=== PATIENT | female | born 1955 | race Caucasian/White ===

== ENCOUNTER 2019-07-27 11:09 | Emergency (ER) | payer OTHER ==
[2019-07-27] MEDS ORDERED: Sodium Chloride 0.9% 1000 ML 1,000 ML IV STA (11:17)
--- NOTE | 2019-07-27 11:17 | ERPHSYRPT ---
- History of Present Illness Time Seen by Provider: 07/27/19 11:15 Source: patient, family Exam Limitations: no limitations Physician History: 64 y/o white female presents with sudden onset of nausea, weakness, palpitations and mild soa. denies cp, denies cough. never had before. denies abd pain. pt states she has been having urinary symptoms including dysuria and urinary frequency. Timing/Duration: today, hour(s) (sudden onset 2 hours ago.) Severity: moderate Associated Symptoms: nausea, shortness of breath, other (palpitations, urinary frequency and dysuria) Allergies/Adverse Reactions: cephalexin monohydrate [From [employer]] Allergy (Verified 07/27/19 11:22) epinephrine Allergy (Verified 07/27/19 11:22) Home Medications: Folic Acid 1 mg PO DAILY 07/27/19 [History] Leflunomide [Arava] 10 mg PO DAILY 07/27/19 [History] Levocetirizine Dihydrochloride [Xyzal] 5 mg PO DAILY 07/27/19 [History] Hx Influenza Vaccination/Date Given: Yes - Review of Systems Constitutional: No Symptoms Eyes: No Symptoms Ears, Nose, & Throat: No Symptoms Respiratory: Dyspnea (mild) Cardiac: Palpitations Abdominal/Gastrointestinal: Nausea Genitourinary Symptoms: Dysuria, Frequency Musculoskeletal: No Symptoms Skin: No Symptoms Neurological: No Symptoms Psychological: No Symptoms Endocrine: No Symptoms Hematologic/Lymphatic: No Symptoms Immunological/Allergic: No Symptoms All Other Systems: Reviewed and Negative - Past Medical History Pertinent Past Medical History: Yes Neurological History: No Pertinent History Cardiac History: No Pertinent History Respiratory History: No Pertinent History Endocrine Medical History: No Pertinent History Musculoskeletal History: Rheumatoid Arthritis History: No Pertinent History Psycho-Social History: No Pertinent History Female Reproductive Disorders: No Pertinent History Other Medical History: L shoulder surgery - Past Surgical History Past Surgical History: Yes Neuro Surgical History: No Pertinent History Cardiac: No Pertinent History Respiratory: No Pertinent History Gastrointestinal: Cholecystectomy Genitourinary: No Pertinent History Musculoskeletal: No Pertinent History Female Surgical History: Hysterectomy - Social History Smoking Status: Never smoker Exposure to second hand smoke: No Drug Use: none Patient Lives Alone: No - Nursing Vital Signs Nursing Vital Signs: Initial Vital Signs Temperature 98.4 F 07/27/19 11:12 Pulse Rate 93 H 07/27/19 11:12 Respiratory Rate 16 07/27/19 11:12 Blood Pressure 163/99 07/27/19 11:12 O2 Sat by Pulse Oximetry 94 L 07/27/19 11:12 Pain Scale Pain Intensity 0 - Physical Exam General Appearance: mild distress, alert, anxiety Eye Exam: PERRL/EOMI, eyes nml inspection Ears, Nose, Throat Exam: normal ENT inspection, moist mucous membranes Neck Exam: normal inspection, non-tender, supple, full range of motion Respiratory Exam: normal breath sounds, lungs clear, airway intact, No chest tenderness, No respiratory distress Cardiovascular Exam: regular rate/rhythm, normal heart sounds, normal peripheral pulses Gastrointestinal/Abdomen Exam: soft, normal bowel sounds, No tenderness Pelvic Exam: not done Rectal Exam: not done Extremity Exam: normal inspection, normal range of motion, pelvis stable Neurologic Exam: alert, oriented x 3, cooperative, [employer] II-XII nml as tested, normal mood/affect, nml cerebellar function, nml station & gait Skin Exam: normal color, warm, dry Lymphatic Exam: No adenopathy SpO2 Interpretation: borderline oxygenation O2 Delivery: Room Air - Course Nursing assessment & vital signs reviewed: Yes EKG Interpreted by Me: RATE (96), Sinus Rhythm, NORMAL AXIS, NORMAL INTERVALS, NORMAL QRS, Other (no comparison ekg) Ordered Tests: Active Orders 24 hr Category Date Time Status Insulation Supervisor STAT Care 07/27/19 11:18 Active EKG-ER Only STAT Care 07/27/19 11:17 Active IV Insertion STAT Care 07/27/19 11:17 Active Pulse Oximetry (ED) STAT Care 07/27/19 11:17 Active CBC W DIFF Stat Lab 07/27/19 11:25 Completed CMP Stat Lab 07/27/19 11:25 Completed CULTURE,URINE Stat Lab 07/27/19 11:48 Received D-DIMER QUANTITATION Stat Lab 07/27/19 11:25 Completed Lactic Acid Stat Lab 07/27/19 11:45 Completed NT PRO BNP Stat Lab 07/27/19 11:25 Completed PROTIME WITH INR Stat Lab 07/27/19 11:25 Completed TROPONIN Q3H Lab 07/27/19 11:25 Completed TROPONIN Q3H Lab 07/27/19 14:30 Ordered TROPONIN Q3H Lab 07/27/19 17:30 Ordered TROPONIN Q3H Lab 07/27/19 20:30 Ordered TROPONIN Q3H Lab 07/27/19 23:30 Ordered UA W/RFX UR CULTURE Stat Lab 07/27/19 11:48 Completed Medication Summary Generic Name Dose Route Start Last Admin Trade Name Tashia PRN Reason Stop Dose Admin Levofloxacin/Dextrose 750 mg in 150 mls @ 100 mls/hr 07/27/19 12:18 07/27/19 12:28 Levofloxacin 750mg/150ml D5w IV 07/27/19 13:47 100 mls/hr STAT STA 100 mls/hr Administration Discontinued Medications Generic Name Dose Route Start Last Admin Trade Name Tashia PRN Reason Stop Dose Admin Sodium Chloride 1,000 mls @ 999 mls/hr 07/27/19 11:17 07/27/19 11:44 Sodium Chloride 0.9% 1000 Ml IV 07/27/19 12:17 999 mls/hr .Q1H1M STA Administration Sodium Chloride Confirm 07/27/19 11:39 Sodium Chloride 0.9% 1000 Ml Administered 07/27/19 11:40 Dose 1,000 mls @ ud .ROUTE .STK-MED ONE Levofloxacin/Dextrose Confirm 07/27/19 12:27 Levofloxacin 750mg/150ml D5w Administered 07/27/19 12:28 Dose 750 mg in 150 mls @ ud IV .STK-MED ONE Ondansetron HCl 4 mg 07/27/19 11:19 07/27/19 11:44 Zofran 4 Mg/2 Ml Vial IV 07/27/19 11:20 4 mg STAT ONE Administration Ondansetron HCl Confirm 07/27/19 11:39 Zofran 4 Mg/2 Ml Vial Administered 07/27/19 11:40 Dose 4 mg .ROUTE .STK-MED ONE Potassium Chloride 10 meq 07/27/19 11:59 07/27/19 12:05 Klor Con 10 Meq PO 07/27/19 12:00 10 meq STAT ONE Administration Potassium Chloride Confirm 07/27/19 12:04 Klor Con 10 Meq Administered 07/27/19 12:05 Dose 10 meq PO .STK-MED ONE Trimethoprim/Sulfamethoxazole 1 tab 07/27/19 12:19 07/27/19 12:28 Bactrim Ds Tablet PO 07/27/19 12:20 1 tab STAT ONE Administration Trimethoprim/Sulfamethoxazole Confirm 07/27/19 12:27 Bactrim Ds Tablet Administered 07/27/19 12:28 Dose 1 tab PO .STK-MED ONE Lab/Rad Data: Laboratory Result Diagrams 07/27/19 11:25 07/27/19 11:25 Laboratory Results 07/27/19 07/27/19 07/27/19 Range/Units 11:48 11:45 11:25 WBC (4.0-10.5) K/mm3 RBC (4.1-5.4) M/mm3 Hgb (12.0-16.0) gm/dl Hct (35-47) % MCV (78-100) fl MCH (26-32) pg MCHC (32-36) g/dl RDW (11.5-14.0) % Plt Count (150-450) K/mm3 MPV (6-9.5) fl Gran % (36.0-66.0) % Eos # (Auto) (0-0.5) Absolute Lymphs (auto) (1.0-4.6) Absolute Monos (auto) (0.0-1.3) Lymphocytes % (24.0-44.0) % Monocytes % (0.0-12.0) % Eosinophils % (0.00-5.0) % Basophils % (0.0-0.4) % Absolute Granulocytes (1.4-6.9) Basophils # (0-0.4) PT (9.95-12.35) SECONDS INR (0.8-3.0) D-Dimer (215-500) ng/mL Sodium (137-145) mmol/L Potassium (3.5-5.1) mmol/L Chloride (98-107) mmol/L Carbon Dioxide (22-30) mmol/L Anion Gap (5-15) MEQ/L BUN (7-17) mg/dL Creatinine (0.52-1.04) mg/dL Estimated GFR ML/MIN Glucose (74-106) mg/dL Lactic Acid 1.3 (0.4-2.0) Calcium (8.4-10.2) mg/dL Total Bilirubin (0.2-1.3) mg/dL AST (14-36) U/L ALT (0-35) U/L Alkaline Phosphatase (38-126) U/L Troponin I < 0.012 (0.000-0.034) ng/mL NT-Pro-B Natriuret Pep (0-900) pg/mL Serum Total Protein (6.3-8.2) g/dL Albumin (3.5-5.0) g/dL Urine Color ASHLEY (YELLOW) Urine Appearance CLOUDY (CLEAR) Urine pH 5.0 (5-6) Ur Specific [place] 1.020 (1.005-1.025) Urine Protein 100 (Negative) Urine Ketones TRACE (NEGATIVE) Urine Blood MODERATE (0-5) Kevon/ul Urine Nitrite POSITIVE (NEGATIVE) Urine Bilirubin NEGATIVE (NEGATIVE) Urine Urobilinogen 2 (0-1) mg/dL Ur Leukocyte Esterase LARGE (NEGATIVE) Urine WBC (Auto) >100 (0-5) /HPF Urine RBC (Auto) 51-100 (0-2) /HPF U Epithel Cells (Auto) RARE (FEW) /HPF Urine Bacteria (Auto) FEW (NEGATIVE) /HPF Urine Mucus (Auto) SLIGHT (NEGATIVE) /HPF Urine Culture Reflexed YES (NO) Urine Glucose NEGATIVE (NEGATIVE) mg/dL 07/27/19 07/27/19 07/27/19 Range/Units 11:25 11:25 11:25 WBC 8.3 (4.0-10.5) K/mm3 RBC 4.30 (4.1-5.4) M/mm3 Hgb 13.1 (12.0-16.0) gm/dl Hct 39.2 (35-47) % MCV 91.2 (78-100) fl MCH 30.5 (26-32) pg MCHC 33.4 (32-36) g/dl RDW 13.4 (11.5-14.0) % Plt Count 198 (150-450) K/mm3 MPV 10.9 H (6-9.5) fl Gran % 79.4 H (36.0-66.0) % Eos # (Auto) 0.07 (0-0.5) Absolute Lymphs (auto) 0.83 L (1.0-4.6) Absolute Monos (auto) 0.77 (0.0-1.3) Lymphocytes % 10.0 L (24.0-44.0) % Monocytes % 9.2 (0.0-12.0) % Eosinophils % 0.8 (0.00-5.0) % Basophils % 0.6 (0.0-0.4) % Absolute Granulocytes 6.61 (1.4-6.9) Basophils # 0.05 (0-0.4) PT 12.9 H (9.95-12.35) SECONDS INR 1.14 (0.8-3.0) D-Dimer 547 H* (215-500) ng/mL Sodium 143 (137-145) mmol/L Potassium 3.3 L (3.5-5.1) mmol/L Chloride 106 (98-107) mmol/L Carbon Dioxide 25 (22-30) mmol/L Anion Gap 14.0 (5-15) MEQ/L BUN 11 (7-17) mg/dL Creatinine 0.64 (0.52-1.04) mg/dL Estimated GFR > 60.0 ML/MIN Glucose 128 H (74-106) mg/dL Lactic Acid (0.4-2.0) Calcium 9.7 (8.4-10.2) mg/dL Total Bilirubin 0.70 (0.2-1.3) mg/dL AST 50 H (14-36) U/L ALT 61 H (0-35) U/L Alkaline Phosphatase 118 (38-126) U/L Troponin I (0.000-0.034) ng/mL NT-Pro-B Natriuret Pep 62.7 (0-900) pg/mL Serum Total Protein 7.6 (6.3-8.2) g/dL Albumin 4.2 (3.5-5.0) g/dL Urine Color (YELLOW) Urine Appearance (CLEAR) Urine pH (5-6) Ur Specific [place] (1.005-1.025) Urine Protein (Negative) Urine Ketones (NEGATIVE) Urine Blood (0-5) Kevon/ul Urine Nitrite (NEGATIVE) Urine Bilirubin (NEGATIVE) Urine Urobilinogen (0-1) mg/dL Ur Leukocyte Esterase (NEGATIVE) Urine WBC (Auto) (0-5) /HPF Urine RBC (Auto) (0-2) /HPF U Epithel Cells (Auto) (FEW) /HPF Urine Bacteria (Auto) (NEGATIVE) /HPF Urine Mucus (Auto) (NEGATIVE) /HPF Urine Culture Reflexed (NO) Urine Glucose (NEGATIVE) mg/dL - Progress Progress: improved Progress Note: 07/27/19 12:50 i had long d/w pt regarding cta chest. i discussed the purpose and what we would be looking for in that test. i discussed the test with iv contrast, the risks benefits and alternatives to the test. i told her i did not believe she had an acute lung issue such as a pneumonia or pulmonary emboli. however, i could not be certain without the test. she declines the cta of chest. Counseled pt/family regarding: lab results, diagnosis, need for follow-up, rad results - Departure Departure Disposition: Home Clinical Impression: UTI (urinary tract infection) Condition: Stable Critical Care Time: No Additional Instructions: drink plenty of fluids. take medications as prescribed. follow up with primary doctor for further management Prescriptions: Smz/Tmp Ds Tablet [Bactrim Ds Tablet] 1 udtab PO BID #20 tablet
[2019-07-27] MEDS ORDERED: Zofran 4 MG/2 ML VIAL IV ONE (11:19)
[2019-07-27 11:36] LABS: BASOPHIL % 0.6 % (0.0-0.4); Basophil (Absolute #) 0.05 (0-0.4); Eosinophil % 0.8 % (0.00-5.0); Eosinophil (Absolute #) 0.07 (0-0.5); Granulocyte Absolute (ANC) 6.61 (1.4-6.9); Granulocytes % 79.4 % (36.0-66.0); Hematocrit 39.2 % (35-47); Hemoglobin 13.1 gm/dl (12.0-16.0); Lymphocyte (Absolute #) 0.83 (1.0-4.6); Mean Cell Volume 91.2 fl (78-100); Mean Corpuscular Hemoglobin 30.5 pg (26-32); Mean Corpuscular Hgb Concent. 33.4 g/dl (32-36); Mean Platelet Volume 10.9 fl (6-9.5); Monocyte (Absolute #) 0.77 (0.0-1.3); Monocytes % 9.2 % (0.0-12.0); Platelet Count 198 K/mm3 (150-450); Red Cell Distribution Width 13.4 % (11.5-14.0); White Blood Count 8.3 K/mm3 (4.0-10.5)
[2019-07-27] MEDS ORDERED: Zofran 4 MG/2 ML VIAL ONE (11:39)
[2019-07-27] MEDS ORDERED: Sodium Chloride 0.9% 1000 ML 1,000 ML ONE (11:39)
[2019-07-27 11:41] LABS: INR 1.14 (0.8-3.0); PROTIME 12.9 SECONDS (9.95-12.35)
[2019-07-27 11:53] LABS: ALBUMIN 4.2 g/dL (3.5-5.0); ALKALINE PHOSPHATASE 118 U/L (38-126); BLOOD UREA NITROGEN 11 mg/dL (7-17); CHLORIDE 106 mmol/L (98-107); Calcium 9.7 mg/dL (8.4-10.2); Carbon Dioxide 25 mmol/L (22-30); Creatinine 1 0.64 mg/dL (0.52-1.04); Glucose 128 mg/dL (74-106); NT PRO BNP 62.7 pg/mL (0-900); Potassium 3.3 mmol/L (3.5-5.1); SGOT/AST 50 U/L (14-36); SGPT/ALT 61 U/L (0-35); SODIUM 143 mmol/L (137-145); Total Protein 7.6 g/dL (6.3-8.2)
[2019-07-27] MEDS ORDERED: Klor Con 10 MEQ PO ONE ×2 (11:59→12:04)
[2019-07-27 12:03] LABS: Appearance CLOUDY (CLEAR); Bacteria FEW /HPF (NEGATIVE); Bilirubin NEGATIVE (NEGATIVE); Blood MODERATE Ery/ul (0-5); Epithelial Cells RARE /HPF (FEW); Glucose NEGATIVE (NEGATIVE); Ketones TRACE (NEGATIVE); Leukocyte Esterase LARGE (NEGATIVE); Mucus SLIGHT /HPF (NEGATIVE); Nitrite POSITIVE (NEGATIVE); Protein,Urine Dip 100 (Negative); RBC 51-100 /HPF (0-2); Urobilinogen 2 mg/dL (0-1); WBC >100 /HPF (0-5)
[2019-07-27 12:09] VITALS: PULSE 83
[2019-07-27] MEDS ORDERED: LEVOFLOXACIN 750MG/150ML D5W 750 MG/150 ML BAG IV STA (12:18)
[2019-07-27] MEDS ORDERED: BACTRIM DS TABLET PO ONE ×2 (12:19→12:27)
[2019-07-27] MEDS ORDERED: LEVOFLOXACIN 750MG/150ML D5W 750 MG/150 ML BAG IV ONE (12:27)
[2019-07-27 13:05] VITALS: BP 167/94; O2SAT 97
== END 2019-07-27 14:22 | disposition home or self-care (01) ==
LOC: ED 11:09
DX: N39.0 Urinary tract infection, site not specified (principal)
CPT/HCPCS: 36000; 36415; 80053; 81001; 83605; 83880; 84484; 85025; 85379; 85610; 87077; 87086; 87186; 93005; 93041; 94760; 96360; 96365; 96374; 99284; J1956; J2405; A9270-GY

== ENCOUNTER 2021-07-09 11:46 | Emergency (ER) | payer OTHER ==
[2021-07-09 12:42] VITALS: BP 131/68; PULSE 92; O2SAT 98
--- NOTE | 2021-07-09 13:37 | ERPHSYRPT ---
- History of Present Illness Time Seen by Provider: 07/09/21 11:49 Patient Subjective Stated Complaint: UTI complaints Triage Nursing Assessment: Patient ambulated back to ED and transferred self to bed. Patient A+O X3. Patient's skin pink, warm and dry. Patient complains of dysuria, frequency, urgenc, hestitation and hematuria upon urination since Friday. Patient also complains of lower abdominal pain 5/10. Urine noted to be light saw and cloudy. Physician History: 65 years old female with history of UTIs in the past presented in the ER with 2 days history of increased urinary frequency, burning, suprapubic discomfort and today started to have some hematuria. No fever or chills reported. Patient has been using [id number] medication with no significant relief. No abdominal pain in the right or left lower quadrants, nausea or vomiting. Timing/Duration: day(s) (2), intermittent, gradual onset, worse Activites at Onset: rest Quality: burning, fullness Onset Location: suprapubic, urethral Severity of Pain-Max: moderate Severity of Pain-Current: moderate Sexual intercourse history: non-contributory Modifying Factors: Worsens With: urinating Associated Symptoms: dysuria, urinary frequency, No fever, No chills, No vomiting Allergies/Adverse Reactions: cephalexin monohydrate [From [employer]] Allergy (Verified 07/09/21 12:34) epinephrine Allergy (Verified 07/09/21 12:34) Home Medications: Folic Acid 1 mg PO DAILY 07/27/19 [History] Leflunomide [Arava] 10 mg PO DAILY 07/27/19 [History] Levocetirizine Dihydrochloride [Xyzal] 5 mg PO DAILY 07/27/19 [History] Hx Influenza Vaccination/Date Given: Yes Hx Pneumococcal Vaccination/Date Given: No Travel Risk - International Travel Have you traveled outside of the country in past 3 weeks: No - Coronavirus Screening Are you exhibiting any of the following symptoms?: No - Vaccine Status Have you recieved a Covid-19 vaccination: Yes 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[employer] - Vaccination Dates Date of 2cond Vaccination (if applicable): na - Review of Systems Constitutional: No Symptoms Ears, Nose, & Throat: No Symptoms Respiratory: No Symptoms Cardiac: No Symptoms Abdominal/Gastrointestinal: No Symptoms Genitourinary Symptoms: Dysuria, Frequency, Hematuria Musculoskeletal: No Symptoms Neurological: No Symptoms Psychological: No Symptoms Endocrine: No Symptoms Hematologic/Lymphatic: No Symptoms - Past Medical History Pertinent Past Medical History: Yes Neurological History: No Pertinent History Cardiac History: No Pertinent History Respiratory History: No Pertinent History Endocrine Medical History: No Pertinent History Musculoskeletal History: Rheumatoid Arthritis History: No Pertinent History Psycho-Social History: No Pertinent History Female Reproductive Disorders: No Pertinent History Other Medical History: L shoulder surgery - Past Surgical History Past Surgical History: Yes Neuro Surgical History: No Pertinent History Cardiac: No Pertinent History Respiratory: No Pertinent History Gastrointestinal: Cholecystectomy Genitourinary: No Pertinent History Musculoskeletal: No Pertinent History Female Surgical History: Hysterectomy - Social History Smoking Status: Never smoker Exposure to second hand smoke: No Drug Use: none Patient Lives Alone: No - Female History Hx Now: No - Nursing Vital Signs Nursing Vital Signs: Initial Vital Signs Temperature 98.0 F 07/09/21 12:35 Pulse Rate 92 H 07/09/21 12:35 Respiratory Rate 18 07/09/21 12:35 Blood Pressure 131/68 07/09/21 12:35 O2 Sat by Pulse Oximetry 98 07/09/21 12:35 Pain Scale Pain Intensity 5 - Physical Exam General Appearance: no apparent distress, alert Ears, Nose, Throat Exam: normal ENT inspection Neck Exam: normal inspection, full range of motion Respiratory Exam: normal breath sounds, lungs clear Cardiovascular Exam: regular rate/rhythm, normal heart sounds Gastrointestinal/Abdomen Exam: soft, normal bowel sounds, tenderness (Mild suprapubic) Back Exam: normal inspection, normal range of motion Extremity Exam: normal inspection, normal range of motion Neurologic Exam: alert, oriented x 3, cooperative Skin Exam: normal color SpO2 Interpretation: normal SpO2: 98 O2 Delivery: Room Air Ordered Tests: Active Orders 24 hr Category Date Time Status CULTURE,URINE Stat Lab 07/09/21 12:35 Received UA W/RFX UR CULTURE Stat Lab 07/09/21 12:35 Completed Medication Summary Generic Name Dose Route Start Last Admin Trade Name Freq PRN Reason Stop Dose Admin Trimethoprim/Sulfamethoxazole 1 tab 07/09/21 15:09 Bactrim Ds Tablet PO 07/09/21 15:10 STAT STA Lab/Rad Data: Laboratory Results 07/09/21 Range/Units 12:35 Urine Color YELLOW (YELLOW) Urine Appearance CLOUDY (CLEAR) Urine pH 6.0 (5-6) Ur Specific [place] 1.006 (1.005-1.025) Urine Protein 30 (Negative) Urine Ketones NEGATIVE (NEGATIVE) Urine Blood LARGE (0-5) Kevon/ul Urine Nitrite NEGATIVE (NEGATIVE) Urine Bilirubin NEGATIVE (NEGATIVE) Urine Urobilinogen NEGATIVE (0-1) mg/dL Ur Leukocyte Esterase LARGE (NEGATIVE) Urine WBC (Auto) >100 (0-5) /HPF Urine RBC (Auto) 26-50 (0-2) /HPF U Epithel Cells (Auto) NONE (FEW) /HPF Urine Bacteria (Auto) MODERATE (NEGATIVE) /HPF Urine Culture Reflexed YES (NO) Urine Glucose NEGATIVE (NEGATIVE) mg/dL - Progress Progress: unchanged Air Movement: good Progress Note: 07/09/21 15:10 Does have UTI, started on Bactrim. Recommended outpatient follow-up. Discussed signs symptoms of worsening needing return to ER which he seems understanding. Does not have any flank tenderness, fever/chills, do not think needs any further work-up and is stable for discharge. Blood Culture(s) Obtained: No Antibiotics given: Yes Counseled pt/family regarding: lab results, diagnosis, need for follow-up - Departure Departure Disposition: Home Clinical Impression: UTI (urinary tract infection) Qualifiers: Urinary tract infection type: acute cystitis Hematuria presence: with hematuria Qualified Code(s): N30.01 - Acute cystitis with hematuria Condition: Stable Critical Care Time: No Referrals: BRYAN HODGES [Primary Care Provider] - (In 2 days for reevaluation) Instructions: Urinary Tract Infection, Adult (DC) Additional Instructions: Drink plenty of fluids. Take Tylenol as needed. Follow-up with your primary care physician for reevaluation. Return to ER for worsening pain, difficulty urination or if develop fever chills or flank pain etc. Prescriptions: Smz/Tmp Ds Tablet [Bactrim Ds Tablet] 1 udtab PO BID #10 tablet
[2021-07-09 14:09] LABS: Appearance CLOUDY (CLEAR); Bacteria MODERATE /HPF (NEGATIVE); Bilirubin NEGATIVE (NEGATIVE); Blood LARGE Ery/ul (0-5); Glucose NEGATIVE (NEGATIVE); Ketones NEGATIVE (NEGATIVE); Leukocyte Esterase LARGE (NEGATIVE); Nitrite NEGATIVE (NEGATIVE); Protein,Urine Dip 30 (Negative); RBC 26-50 /HPF (0-2); Specific Gravity 1.006 (1.005-1.025); Urobilinogen NEGATIVE mg/dL (0-1); WBC >100 /HPF (0-5)
[2021-07-09] MEDS ORDERED: BACTRIM DS TABLET PO STA (15:09)
[2021-07-09] MEDS ORDERED: BACTRIM DS TABLET PO ONE (15:19)
== END 2021-07-09 15:33 | disposition home or self-care (01) ==
LOC: ED 11:46
DX: N39.0 Urinary tract infection, site not specified (principal); Z79.899 Other long term (current) drug therapy
CPT/HCPCS: 81001; 87086; 99283; A9270-GY

== ENCOUNTER 2021-12-10 16:38 | Inpatient (IN) | payer MEDICARE, OTHER ==
[2021-12-10] MEDS ORDERED: Sodium Chloride 0.9% 1000 ML 1,000 ML IV SCH ×2 (17:00→21:26)
[2021-12-10] MEDS ORDERED: DECADRON 10MG INJ. IV ONE (17:02)
[2021-12-10] MEDS ORDERED: ENOXAPARIN SODIUM SQ ONE ×5 (17:04→19:19)
[2021-12-10] MEDS ORDERED: REMDESIVIR 200 MG in Sodium Chloride 0.9% 250 ML 250 ML IV ONE (17:04)
--- NOTE | 2021-12-10 17:16 | ERPHSYRPT ---
- History of Present Illness Time Seen by Provider: 12/10/21 16:45 Source: patient Exam Limitations: no limitations Patient Subjective Stated Complaint: "I can't breath." Triage Nursing Assessment: Patient reported that she was COVID positive on . She reported worsening shortness of breath and weakness over the past three days. She reported that she felt better yesterday afternoon then had a sudden episode of shortness of breath without chest pain, dizziness, visual disturbances. Pupils 3mm bilateral. Symmetrical chest expansion. heart tones S1/S2 RRR without extra sounds. Lungs vesicular with coarse expiratory wheezes in the bilateral lung bases. Peripheral pulses +3 bilateral. Abdomen obese non- distended, non-tender, and without palpable organomegaly or pulsatile masses. No noted dependent edema. Physician History: Patient is a 66-year-old female presents to our emergency department with complaints of shortness of breath. Patient was diagnosed with Covid on November 27. Since then she has been experiencing malaise and shortness of breath. These have been manageable however today patient developed acute onset shortness of breath. Upon arrival to our ED patient was hypoxic on room air. No chest pain. No nausea or vomiting. No diaphoresis. No diarrhea. No rash. Symptoms are moderate in intensity. Exertion worsens shortness of breath. Patient voices no other complaints or concerns at this time. Timing/Duration: today Severity: moderate Modifying Factors: Improves With: nothing Associated Symptoms: denies symptoms Allergies/Adverse Reactions: cephalexin monohydrate [From Keflex] Allergy (Verified 07/09/21 12:34) epinephrine Adverse Reaction (Verified 12/10/21 16:44) Home Medications: Folic Acid 1 mg PO DAILY 07/27/19 [History] Leflunomide [Arava] 10 mg PO DAILY 07/27/19 [History] Levocetirizine Dihydrochloride [Xyzal] 5 mg PO DAILY 07/27/19 [History] Lisinopril 5 mg [Zestril 5 MG] 5 mg PO DAILY 12/10/21 [History] Hx Influenza Vaccination/Date Given: No Hx Pneumococcal Vaccination/Date Given: No Travel Risk - International Travel Have you traveled outside of the country in past 3 weeks: No - Coronavirus Screening Are you exhibiting any of the following symptoms?: Yes Symptoms: Shortness of Breath Close contact with a COVID-19 positive Pt in past 14-21 Days: No - Vaccine Status Have you recieved a Covid-19 vaccination: Yes Lathe Hand: [employer] - Vaccination Dates Date of 2cond Vaccination (if applicable): 07/2021 - Review of Systems Constitutional: No Symptoms, No Fever, No Chills Eyes: No Symptoms Ears, Nose, & Throat: No Symptoms Respiratory: No Symptoms, No Cough, No Dyspnea Cardiac: No Symptoms, No Chest Pain, No Edema, No Syncope Abdominal/Gastrointestinal: No Symptoms, No Abdominal Pain, No Nausea, No Vomiting, No Diarrhea Genitourinary Symptoms: No Symptoms, No Dysuria Musculoskeletal: No Symptoms, No Back Pain, No Neck Pain Skin: No Symptoms, No Rash Neurological: No Symptoms, No Dizziness, No Focal Weakness, No Sensory Changes Psychological: No Symptoms Endocrine: No Symptoms Hematologic/Lymphatic: No Symptoms Immunological/Allergic: No Symptoms All Other Systems: Reviewed and Negative - Past Medical History Pertinent Past Medical History: Yes Neurological History: No Pertinent History Cardiac History: Hypertension Respiratory History: No Pertinent History Endocrine Medical History: No Pertinent History Musculoskeletal History: Rheumatoid Arthritis History: No Pertinent History Psycho-Social History: No Pertinent History Female Reproductive Disorders: No Pertinent History Other Medical History: L shoulder surgery, Covid + 11/27/2021 - Past Surgical History Past Surgical History: Yes Neuro Surgical History: No Pertinent History Cardiac: No Pertinent History Respiratory: No Pertinent History Gastrointestinal: Cholecystectomy Genitourinary: No Pertinent History Musculoskeletal: No Pertinent History Female Surgical History: Hysterectomy - Social History Smoking Status: Never smoker Exposure to second hand smoke: No Drug Use: none Patient Lives Alone: No - Nursing Vital Signs Nursing Vital Signs: Initial Vital Signs Temperature 99.4 F 12/10/21 16:38 Pulse Rate 82 12/10/21 16:38 Respiratory Rate 34 H 12/10/21 16:38 Blood Pressure 111/74 12/10/21 16:38 O2 Sat by Pulse Oximetry 76 L 12/10/21 16:38 Pain Scale Pain Intensity 0 - Physical Exam General Appearance: no apparent distress, alert Eye Exam: PERRL/EOMI, eyes nml inspection Ears, Nose, Throat Exam: normal ENT inspection, TMs normal, pharynx normal, moist mucous membranes Neck Exam: normal inspection, non-tender, supple, full range of motion Respiratory Exam: normal breath sounds, lungs clear, airway intact, diminished breath sounds, No respiratory distress Cardiovascular Exam: regular rate/rhythm, normal heart sounds, normal peripheral pulses Gastrointestinal/Abdomen Exam: soft, normal bowel sounds, No tenderness, No mass Back Exam: normal inspection, normal range of motion, No CVA tenderness, No vertebral tenderness Extremity Exam: normal inspection, normal range of motion, pelvis stable Neurologic Exam: alert, oriented x 3, cooperative, normal mood/affect, nml cerebellar function, nml station & gait, sensation nml, No motor deficits Skin Exam: normal color, warm, dry, No rash Lymphatic Exam: No adenopathy SpO2 Interpretation: normal SpO2: 76 O2 Delivery: Room Air - Course Nursing assessment & vital signs reviewed: Yes - Radiology Exams Chest X-ray Interpretation: Interpreted by me (Bilateral pulmonary opacities. Normal cardiac silhouette. Intact bony thorax) - CT Exams Chest CT Interpretation: Tele-radiologist Report (No comps. Nonoccluding PEs main left to right pulmonary arteries and right upper right lower and left lower branches. Diffuse COVID-19 pneumonia. Fatty liver.) Ordered Tests: Active Orders 24 hr Category Date Time Status Planning Official STAT Care 12/10/21 17:00 Active EKG-ER Only STAT Care 12/10/21 16:59 Active IV Insertion STAT Care 12/10/21 16:59 Active IV Insertion-2nd Peripheral STAT Care 12/10/21 17:08 Active Oxygen-ED Only Nasal Cannula 6 lpm Care 12/10/21 17:09 Active Pulse Oximetry (ED) STAT Care 12/10/21 16:59 Active CHEST 1 VIEW (PORTABLE) Stat Exams 12/10/21 17:00 Taken CHEST WITH CONTRAST [CT] Stat Exams 12/10/21 17:13 Taken BLOOD CULTURE Stat Lab 12/10/21 16:50 Received CBC W DIFF Stat Lab 12/10/21 16:59 Completed CMP Stat Lab 12/10/21 16:59 Completed UA W/RFX UR CULTURE Stat Lab 12/10/21 17:00 Ordered Transfer Order Routine Transfer 12/10/21 Ordered Medication Summary Generic Name Dose Route Start Last Admin Trade Name Freq PRN Reason Stop Dose Admin Sodium Chloride 1,000 mls @ 100 mls/hr 12/10/21 17:00 12/10/21 17:21 Sodium Chloride 0.9% 1000 Ml IV 01/09/22 16:59 100 mls/hr .Q10H MARGE Administration Discontinued Medications Generic Name Dose Route Start Last Admin Trade Name Tashia PRN Reason Stop Dose Admin Dexamethasone Sodium Phosphate 8 mg 12/10/21 17:02 12/10/21 17:22 Dexamethasone Sod Phosphate 10 Mg/Ml IV 12/10/21 17:03 8 mg STAT ONE Administration Dexamethasone Sodium Phosphate Confirm 12/10/21 17:17 Dexamethasone Sod Phosphate 10 Mg/Ml Administered 12/10/21 17:18 Dose 10 mg .ROUTE .STK-MED ONE Enoxaparin Sodium 40 mg 12/10/21 17:04 12/10/21 17:22 Enoxaparin Sodium 40 Mg/0.4 Ml Syringe SQ 12/10/21 17:05 40 mg STAT ONE Administration Enoxaparin Sodium Confirm 12/10/21 17:17 Enoxaparin Sodium 80 Mg/0.8 Ml Syringe Administered 12/10/21 17:18 Dose 80 mg SQ .STK-MED ONE Remdesivir 200 mg/ Sodium 250 mls @ 125 mls/hr 12/10/21 17:04 12/10/21 18:07 Chloride IV 12/10/21 19:03 125 mls/hr ONCE ONE Administration Potassium Chloride 40 meq 12/10/21 17:56 Potassium Chloride 10 Meq Tablet PO 12/10/21 17:57 STAT ONE Lab/Rad Data: Laboratory Result Diagrams 12/10/21 16:59 12/10/21 16:59 Laboratory Results 12/10/21 12/10/21 Range/Units 16:59 16:59 WBC 6.5 (4.0-10.5) K/mm3 RBC 3.47 L (4.1-5.4) M/mm3 Hgb 10.3 L (12.0-16.0) gm/dl Hct 32.0 L (35-47) % MCV 92.2 (78-100) fl MCH 29.7 (26-32) pg MCHC 32.2 (32-36) g/dl RDW 13.5 (11.5-14.0) % Plt Count 210 (150-450) K/mm3 MPV 11.2 H (7.5-11.0) fl Gran % 78.9 H (36.0-66.0) % Eos # (Auto) 0.01 (0-0.5) Absolute Lymphs (auto) 0.78 L (1.0-4.6) Absolute Monos (auto) 0.56 (0.0-1.3) Lymphocytes % 12.0 L (24.0-44.0) % Monocytes % 8.6 (0.0-12.0) % Eosinophils % 0.2 (0.00-5.0) % Basophils % 0.3 (0.0-0.4) % Absolute Granulocytes 5.12 (1.4-6.9) Basophils # 0.02 (0-0.4) Sodium 136 L (137-145) mmol/L Potassium 2.8 L* (3.5-5.1) mmol/L Chloride 97 L (98-107) mmol/L Carbon Dioxide 30 (22-30) mmol/L Anion Gap 11.9 (5-15) MEQ/L BUN 8 (7-17) mg/dL Creatinine 0.50 L (0.52-1.04) mg/dL Estimated GFR > 60.0 ML/MIN Glucose 100 (74-106) mg/dL Calcium 7.5 L (8.4-10.2) mg/dL Total Bilirubin 0.90 (0.2-1.3) mg/dL AST 56 H (14-36) U/L ALT 27 (0-35) U/L Alkaline Phosphatase 83 (38-126) U/L Serum Total Protein 5.7 L (6.3-8.2) g/dL Albumin 3.1 L (3.5-5.0) g/dL - Progress Progress: improved Progress Note: Patient reassessed. Patient feels much better with the oxygen. CTA chest reveals nonoccluding PEs at the main left right pulmonary, right upper lobe right lower lobe left lower lobe. Diffuse COVID-19 pneumonia. Fatty liver patient received a total of 1 mg/kg Lovenox. Case discussed Dr. Alberts who accepts admission to observation. Plan of care discussed with patient. She agrees to admission [facility] for further evaluation and treatment. Portions of this note were created with voice recognition technology. There may be grammatical, spelling, punctuation or sound alike errors 12/10/21 19:[address].: Other (Case discussed with Dr. Alberts who accepts admission to the Covid unit.) Will see patient in: hospital (observation) Counseled pt/family regarding: lab results, diagnosis, rad results - Departure Departure Disposition: Observation Clinical Impression: COVID-19, Pneumonia due to COVID-19 virus, Hypoxia, Shortness of breath, Hypokalemia, Multiple nonoccluding pulmonary emboli, Fatty liver Condition: Stable Critical Care Time: No Referrals: BRYAN HODGES [Primary Care Provider] - Follow up/PCP as directed
[2021-12-10] MEDS ORDERED: Sodium Chloride 0.9% 1000 ML 1,000 ML ONE (17:17)
[2021-12-10] MEDS ORDERED: DECADRON 10MG INJ. ONE (17:17)
[2021-12-10 17:41] LABS: Absolute Neutrophil Ct (ANC) 5.12 (1.4-6.9); Basophil (Absolute #) 0.02 (0-0.4); Eosinophil % 0.2 % (0.00-5.0); Eosinophil (Absolute #) 0.01 (0-0.5); Hemoglobin 10.3 gm/dl (12.0-16.0); Lymphocyte (Absolute #) 0.78 (1.0-4.6); Mean Cell Volume 92.2 fl (78-100); Mean Corpuscular Hemoglobin 29.7 pg (26-32); Mean Corpuscular Hgb Concent. 32.2 g/dl (32-36); Mean Platelet Volume 11.2 fl (7.5-11.0); Monocyte (Absolute #) 0.56 (0.0-1.3); Monocytes % 8.6 % (0.0-12.0); Neutrophil % 78.9 % (36.0-66.0); Platelet Count 210 K/mm3 (150-450); Red Blood Count 3.47 M/mm3 (4.1-5.4); Red Cell Distribution Width 13.5 % (11.5-14.0); White Blood Count 6.5 K/mm3 (4.0-10.5)
[2021-12-10 17:50] LABS: ALBUMIN 3.1 g/dL (3.5-5.0); ALKALINE PHOSPHATASE 83 U/L (38-126); ANION GAP 11.9 MEQ/L (5-15); BLOOD UREA NITROGEN 8 mg/dL (7-17); CHLORIDE 97 mmol/L (98-107); Calcium 7.5 mg/dL (8.4-10.2); Carbon Dioxide 30 mmol/L (22-30); EST GLOMERULAR FILTRATION RATE > 60.0 ML/MIN; Glucose 100 mg/dL (74-106); SGOT/AST 56 U/L (14-36); SGPT/ALT 27 U/L (0-35); SODIUM 136 mmol/L (137-145); Total Protein 5.7 g/dL (6.3-8.2)
[2021-12-10 17:55] LABS: Potassium 2.8 mmol/L (3.5-5.1)
[2021-12-10] MEDS ORDERED: Klor Con 10 MEQ PO ONE ×2 (17:56→19:19)
[2021-12-10] MEDS ORDERED: Ativan 2 MG/1 ML VIAL IV PRN (21:26)
[2021-12-10] MEDS ORDERED: TYLENOL EXTRA STRENGTH 500 MG PO PRN (21:26)
[2021-12-10] MEDS ORDERED: HYDROCODONE-CHLORPHEN ER SUSP PO PRN (21:26)
[2021-12-10] MEDS ORDERED: Zofran 4 MG/2 ML VIAL IV PRN (21:26)
[2021-12-10] MEDS ORDERED: VENTOLIN COMMON CANISTER IH PRN (21:26)
[2021-12-11] MEDS ORDERED: Sodium Chloride 0.9% 1000 ML 1,000 ML ONE (04:33)
[2021-12-11] MEDS: Sodium Chloride 0.9% 1000 ML 1,000 ML IV SCH ×2 (04:34→18:31)
[2021-12-11 06:04] LABS: Absolute Neutrophil Ct (ANC) 2.16 (1.4-6.9); Basophil (Absolute #) 0.01 (0-0.4); Eosinophil (Absolute #) 0 (0-0.5); Hematocrit 30.2 % (35-47); Hemoglobin 9.7 gm/dl (12.0-16.0); Lymphocyte (Absolute #) 0.64 (1.0-4.6); Lymphocytes % 21.6 % (24.0-44.0); Mean Cell Volume 92.6 fl (78-100); Mean Corpuscular Hemoglobin 29.8 pg (26-32); Mean Corpuscular Hgb Concent. 32.1 g/dl (32-36); Monocyte (Absolute #) 0.15 (0.0-1.3); Monocytes % 5.1 % (0.0-12.0); Platelet Count 188 K/mm3 (150-450); Red Blood Count 3.26 M/mm3 (4.1-5.4); Red Cell Distribution Width 13.5 % (11.5-14.0)
[2021-12-11 06:48] LABS: ALKALINE PHOSPHATASE 80 U/L (38-126); ANION GAP 9.7 MEQ/L (5-15); BLOOD UREA NITROGEN 9 mg/dL (7-17); CHLORIDE 106 mmol/L (98-107); Calcium 7.7 mg/dL (8.4-10.2); Carbon Dioxide 29 mmol/L (22-30); Creatinine 1 0.39 mg/dL (0.52-1.04); EST GLOMERULAR FILTRATION RATE > 60.0 ML/MIN; Glucose 168 mg/dL (74-106); Potassium 3.5 mmol/L (3.5-5.1); SGOT/AST 50 U/L (14-36); SGPT/ALT 26 U/L (0-35); SODIUM 141 mmol/L (137-145); Total Protein 5.9 g/dL (6.3-8.2)
[2021-12-11] MEDS ORDERED: PHARMACY DOSING REQUEST MC ONE (07:51)
[2021-12-11] MEDS ORDERED: MEDICATION INTERVENTION PO SCH (08:30)
--- NOTE | 2021-12-11 08:41 | XRAY ---
Indication: Pulmonary embolus. Positive Covid 19. Multiple contiguous axial images obtained through the chest using 100 cc Isovue 370 contrast and PE protocol. Comparison: None. There is satisfactory opacification of the pulmonary arteries. Nonoccluding pulmonary emboli seen in the right main and lesser degree left main pulmonary arteries. Nonoccluding pulmonary emboli further extends into the right upper/right lower/left lower lobes. Heart is not enlarged. Aorta is normal in course and caliber without aneurysm. 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 No pathologic mediastinal/hilar lymphadenopathy. Lungs demonstrates marked diffuse bilateral patchy airspace disease without consolidation/effusion. Bony thorax intact with mild degenerative changes throughout the spine. Limited upper abdomen demonstrates fatty liver. Impression: 1. Diffuse bilateral nonoccluding pulmonary emboli as detailed. 2. Diffuse bilateral patchy airspace disease favoring Covid 19 pneumonia. 3. Incidental multilevel degenerative spondylosis and fatty liver.
--- NOTE | 2021-12-11 08:41 | XRAY ---
Indication: Short of breath. Positive Covid 19. Comparison: September 23, 2008. Portable chest demonstrates new moderate diffuse bilateral patchy airspace disease without consolidation/large effusion. Heart not enlarged. Bony thorax intact with mild osteopenia and degenerative changes.
[2021-12-11] MEDS ORDERED: NON-FORMULARY ITEM (Levocetirizine Dihydrochloride [Xyzal] 5 MG Tablet) PO SCH (10:00)
[2021-12-11] MEDS ORDERED: LEFLUNOMIDE 10 MG PO SCH (10:00)
[2021-12-11] MEDS ORDERED: ENOXAPARIN SODIUM SQ SCH (10:00)
--- NOTE | 2021-12-11 10:16 | HP ---
CHIEF COMPLAINT: "I can't breathe". HISTORY OF PRESENT ILLNESS: The patient is a 66-year-old white female who came to the emergency room at approximately 1645 hours with the statement that suddenly she could not get her breath and she said it was severe this afternoon, much worse and sort of coming on over three days. She felt better yesterday but the episode this afternoon was very bad. She was in distress when she got there with wheezing lungs bilateral bases. O2 saturation was in the 60's. She had COVID diagnosed she thinks on 11/27/2021 but had seemingly had gotten over that. She had no diarrhea, nausea or vomiting. Again, significant shortness of breath over the last three days and severe before coming to the emergency room. She does not smoke. No history of lung disease. She has had a COVID-19 vaccine by [employer] and the second one was 07/23/2021. TRAVEL RISK: None. CORONAVIRUS SCREENING: She was still positive in the emergency room. MEDICATIONS: Home medications include folic acid, leflunomide 10 mg q.d. for arthritis, Xyzal 5 mg q.d. for allergies, lisinopril 5 q.d. for hypertension. ALLERGIES: CEPHALEXIN MONOHYDRATE. EPINEPHRINE. PAST MEDICAL HISTORY: Rheumatoid arthritis. COVID 11/27/2021. PAST SURGICAL HISTORY: Left shoulder surgery. Cholecystectomy. Hysterectomy in the distant past. REVIEW OF SYSTEMS: CONSTITUTIONAL: No fever. No chills. She was having sweats when I saw her. HEENT: Eyes no problems. Ears, nose and throat with a little sore throat. RESPIRATORY: Shortness of breath, cough, gasping for air when she got to the emergency room. CVS: No heart failure. Mild hypertension. ABDOMEN: No diarrhea or vomiting. : No problems urinating. MUSCULOSKELETAL: No back pain. No neck pain. SKIN: No rashes. NEUROLOGIC: No symptoms. ENDOCRINE: No problems. PSYCHIATRIC: No problems. SOCIAL HISTORY: Never smoked. Lives with her and has relatives close by. 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 PHYSICAL EXAMINATION: VITAL SIGNS: Temperature 99F, pulse 82, respirations 34, blood pressure 110/70. O2 saturation was 76% on admission. GENERAL APPEARANCE: She is in some distress. She is alert, orientated. HEENT: Pupils equal and reactive to light. NECK: Supple without adenopathy. CHEST: Clear. CVS: No murmurs or gallops. Slightly fast. ABDOMEN: Slightly tender right lower quadrant. No masses. EXTREMITIES: No cyanosis. Questionable swelling of right leg. She felt that it was normal. LAB DATA AND TESTS: Chest x-ray was normal. CT scan showed several pulmonary emboli bilateral small ones, diffuse COVID-19 pneumonia, fatty liver. IMPRESSION: The patient felt much better on a mask at 100%. She was given Lovenox 1 gm/kg total dose I believe was 120, Dexamethasone 8 mg, Remdesivir 250, potassium 40 as a rider as her potassium was slightly low 2.8. White count was 6.5, hemoglobin 10.3. CT showed non-occluding pulmonary emboli in the right upper, right lower, left lower lobes and diffuse COVID pneumonia. She was admitted in improved condition and received COVID medications, anticoagulation, mild hypokalemia was treated in the emergency room and will be followed. I will probably change her over to Cyndi in the morning. PROGNOSIS: Guarded.
[2021-12-11] MEDS: Zestril 5 MG PO SCH ×2 (11:01→14:21)
[2021-12-11] MEDS: OLUMIANT PO SCH (11:01)
[2021-12-11] MEDS: ELIQUIS 2.5 MG TABLET PO SCH ×2 (11:02→21:20)
[2021-12-11] MEDS: DECADRON 10MG INJ. IV SCH (11:03)
[2021-12-11] MEDS: Ativan 1 MG PO PRN ×2 (14:22→21:21)
[2021-12-11] MEDS: PATIENT OWN MEDICATION PO SCH (15:43)
[2021-12-11] MEDS: REMDESIVIR 100 MG in Sodium Chloride 0.9% 100 ML BAG 100 ML IV SCH (18:28)
[2021-12-11] MEDS: CLARITIN 10 MG PO SCH (21:19)
[2021-12-11] MEDS: FOLATE 1 MG PO SCH (21:20)
[2021-12-12 06:00] LABS: Hematocrit 32.6 % (35-47); Hemoglobin 10.2 gm/dl (12.0-16.0); Mean Cell Volume 94.2 fl (78-100); Mean Corpuscular Hemoglobin 29.5 pg (26-32); Mean Corpuscular Hgb Concent. 31.3 g/dl (32-36); Mean Platelet Volume 10.9 fl (7.5-11.0); Platelet Count 219 K/mm3 (150-450); Red Blood Count 3.46 M/mm3 (4.1-5.4); Red Cell Distribution Width 13.5 % (11.5-14.0); White Blood Count 3.9 K/mm3 (4.0-10.5)
[2021-12-12 06:51] LABS: ALBUMIN 2.9 g/dL (3.5-5.0); ALKALINE PHOSPHATASE 84 U/L (38-126); ANION GAP 10.6 MEQ/L (5-15); BLOOD UREA NITROGEN 11 mg/dL (7-17); CHLORIDE 108 mmol/L (98-107); Calcium 7.5 mg/dL (8.4-10.2); Carbon Dioxide 27 mmol/L (22-30); Creatinine 1 0.39 mg/dL (0.52-1.04); EST GLOMERULAR FILTRATION RATE > 60.0 ML/MIN; Glucose 169 mg/dL (74-106); SGOT/AST 53 U/L (14-36); SGPT/ALT 33 U/L (0-35); SODIUM 142 mmol/L (137-145); Total Protein 5.8 g/dL (6.3-8.2)
[2021-12-12 06:53] LABS: Potassium 3.1 mmol/L (3.5-5.1)
[2021-12-12] MEDS: Sodium Chloride 0.9% 1000 ML 1,000 ML IV SCH ×3 (07:23→16:32)
[2021-12-12 07:40] LABS: Slide Review YES
[2021-12-12] MEDS: Zestril 5 MG PO SCH ×2 (07:55→15:08)
[2021-12-12] MEDS: OLUMIANT PO SCH (08:47)
[2021-12-12] MEDS: DECADRON 10MG INJ. IV SCH (08:47)
[2021-12-12] MEDS: ELIQUIS 2.5 MG TABLET PO SCH ×2 (08:47→21:51)
[2021-12-12] MEDS: PATIENT OWN MEDICATION PO SCH (08:48)
--- NOTE | 2021-12-12 13:02 | PROG NOTE ---
DATE: 12/12/2021 HISTORY: Bindu is on O2 at 3 liters. She is not short of breath, denies any chest pain, just feels tired and achy. Again, she had COVID probably several weeks ago. She came in with acute shortness of breath and was found to have three or four moderate sized pulmonary emboli. She is presently eating and feeling better. I am waiting on ultrasound of her legs to see if there are any clots left there. Keep her on oral anticoagulation for at least three months. 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 She is also on rheumatoid arthritis medicine which played some role in her not fighting the COVID well at first but that seems to be pretty well under control. She just has some weakness. She is on Arava and she has taken an injectable rheumatoid arthritis medicine that she said she is going to stop and it is past two months from when it was due. She will go home on oxygen and anticoagulation on the weekend. PROGNOSIS: Good.
[2021-12-12] MEDS: Ativan 1 MG PO PRN ×2 (13:14→21:51)
[2021-12-12] MEDS: REMDESIVIR 100 MG in Sodium Chloride 0.9% 100 ML BAG 100 ML IV SCH (17:30)
[2021-12-12] MEDS: CLARITIN 10 MG PO SCH (21:51)
[2021-12-12] MEDS: FOLATE 1 MG PO SCH (21:51)
[2021-12-13 04:44] LABS: Hematocrit 27.8 % (35-47); Mean Cell Volume 91.4 fl (78-100); Mean Corpuscular Hemoglobin 29.6 pg (26-32); Mean Corpuscular Hgb Concent. 32.4 g/dl (32-36); Mean Platelet Volume 10.5 fl (7.5-11.0); Platelet Count 214 K/mm3 (150-450); Red Blood Count 3.04 M/mm3 (4.1-5.4); Red Cell Distribution Width 13.3 % (11.5-14.0); White Blood Count 5.4 K/mm3 (4.0-10.5)
[2021-12-13 04:56] LABS: ALBUMIN 2.5 g/dL (3.5-5.0); ALKALINE PHOSPHATASE 108 U/L (38-126); ANION GAP 6.2 MEQ/L (5-15); BLOOD UREA NITROGEN 14 mg/dL (7-17); CHLORIDE 107 mmol/L (98-107); Calcium 7.8 mg/dL (8.4-10.2); Carbon Dioxide 28 mmol/L (22-30); Creatinine 1 0.38 mg/dL (0.52-1.04); EST GLOMERULAR FILTRATION RATE > 60.0 ML/MIN; Glucose 200 mg/dL (74-106); Potassium 3.1 mmol/L (3.5-5.1); SGOT/AST 61 U/L (14-36); SGPT/ALT 41 U/L (0-35); SODIUM 138 mmol/L (137-145)
[2021-12-13] MEDS: Zestril 5 MG PO SCH ×2 (07:30→13:53)
[2021-12-13] MEDS: DECADRON 10MG INJ. IV SCH (07:31)
[2021-12-13] MEDS: OLUMIANT PO SCH (07:31)
[2021-12-13] MEDS: ELIQUIS 2.5 MG TABLET PO SCH ×2 (07:31→21:12)
[2021-12-13] MEDS: PATIENT OWN MEDICATION PO SCH (07:32)
--- NOTE | 2021-12-13 13:35 | PCM.NOTE ---
Date and Time: 12/13/21 6809 Subjective Assessment: still very short of breath - Review of Systems Constitutional: No Fever, No Chills Eyes: No Symptoms Ears, Nose, & Throat: No Symptoms Respiratory: Cough, Orthopnea, Short Of Breath, Wheezing Cardiac: No Chest Pain, No Edema, No Syncope Abdominal/Gastrointestinal: No Abdominal Pain, No Nausea, No Vomiting, No Diarrhea Genitourinary Symptoms: No Dysuria Musculoskeletal: No Back Pain, No Neck Pain Skin: No Rash Neurological: No Dizziness, No Focal Weakness, No Sensory Changes Psychological: No Symptoms Endocrine: No Symptoms Hematologic/Lymphatic: No Symptoms Immunological/Allergic: No Symptoms Objective Exam General Appearance: no apparent distress, alert Neurologic Exam: alert, oriented x 3, cooperative, normal mood/affect, nml cerebellar function, sensation nml, No motor deficits Skin Exam: normal color, warm, dry Eye Exam: PERRL, EOMI, eyes nml inspection Ears, Nose, Throat Exam: normal ENT inspection, pharynx normal, moist mucous membranes Neck Exam: normal inspection, non-tender, supple, full range of motion Respiratory Exam: crackles/rales, rhonchi, wheezing, No respiratory distress Cardiovascular Exam: regular rate/rhythm, normal heart sounds Gastrointestinal/Abdomen Exam: soft, No tenderness, No mass Extremity Exam: normal inspection, normal range of motion Back Exam: normal inspection, normal range of motion, No CVA tenderness, No vertebral tenderness Pelvic Exam: deferred Rectal Exam: deferred OBJECTIVE DATA Vital Signs: Vital Signs - 24 hr Temp Pulse Resp BP Pulse Ox 12/13/21 12:00 97.7 F 77 24 179/83 90 L 12/13/21 11:43 32 H 12/13/21 10:00 61 32 H 95 12/13/21 08:00 97.5 F 74 32 H 148/81 91 L 12/13/21 07:30 95 12/13/21 06:00 20 12/13/21 05:56 52 L 20 95 12/13/21 04:00 96.8 F 58 L 19 147/75 96 12/13/21 02:00 60 20 95 12/12/21 23:54 21 12/12/21 23:40 95.7 F 63 21 145/60 95 12/12/21 22:00 64 19 94 L 12/12/21 21:00 64 12/12/21 19:40 97.7 F 76 20 152/84 95 12/12/21 19:05 96 12/12/21 17:57 77 16 94 L 12/12/21 16:00 98.0 F 71 16 151/86 94 L 12/12/21 14:00 64 18 98 Pain Assessment - Last Documented Pain Intensity 0 Intake and Output: Intake & Output 12/11/21 12/12/21 12/13/21 12/14/21 11:59 11:59 11:59 11:59 Intake Total 1287 2338 1200 240 Output Total 1550 1900 2000 Balance -263 438 -800 240 Weight 78.2 kg 78.2 kg Lab Results: Lab Results-Last 24 Hours 12/13/21 12/13/21 12/13/21 Range/Units 04:40 04:40 04:40 WBC 5.4 (4.0-10.5) K/mm3 RBC 3.04 L (4.1-5.4) M/mm3 Hgb 9.0 L (12.0-16.0) gm/dl Hct 27.8 L (35-47) % MCV 91.4 (78-100) fl MCH 29.6 (26-32) pg MCHC 32.4 (32-36) g/dl RDW 13.3 (11.5-14.0) % Plt Count 214 (150-450) K/mm3 MPV 10.5 (7.5-11.0) fl D-Dimer 1700 H* (215-500) ng/mL Sodium 138 (137-145) mmol/L Potassium 3.1 L (3.5-5.1) mmol/L Chloride 107 (98-107) mmol/L Carbon Dioxide 28 (22-30) mmol/L Anion Gap 6.2 (5-15) MEQ/L BUN 14 (7-17) mg/dL Creatinine 0.38 L (0.52-1.04) mg/dL Estimated GFR > 60.0 ML/MIN Glucose 200 H (74-106) mg/dL Calcium 7.8 L (8.4-10.2) mg/dL Total Bilirubin 0.80 (0.2-1.3) mg/dL AST 61 H (14-36) U/L ALT 41 H (0-35) U/L Alkaline Phosphatase 108 (38-126) U/L Serum Total Protein 5.0 L (6.3-8.2) g/dL Albumin 2.5 L (3.5-5.0) g/dL Multi-Disciplinary Progress Notes: Multi-Disciplinary Progress Notes 12/13/21 12:35 Case Management Note by Telma Santos REVIEWED CHART- NO CHANGE IN DC NEEDS AT THIS TIME- WILL CONTINUE TO MONITOR Initialized on 12/13/21 12:35 - END OF NOTE Assessment/Plan (1) Pneumonia due to COVID-19 virus Current Visit: Yes Status: Acute Assessment & Plan: Chief Complaint Diagnosis DYLON COVID PNEUMONIA, PULMONARY EMBOLI, HYPOXIA Allergies Allergy/AdvReac Type Severity Reaction Status Date / Time cephalexin monohydrate Allergy Verified 07/09/21 12:34 [From Keflex] epinephrine AdvReac Verified 12/10/21 16:44 Vital Signs (Last 24 hours) Temp Pulse Resp BP Pulse Ox 12/13/21 12:00 97.7 F 77 24 179/83 90 L 12/13/21 11:43 32 H 12/13/21 10:00 61 32 H 95 12/13/21 08:00 97.5 F 74 32 H 148/81 91 L 12/13/21 07:30 95 12/13/21 06:00 20 12/13/21 05:56 52 L 20 95 12/13/21 04:00 96.8 F 58 L 19 147/75 96 12/13/21 02:00 60 20 95 12/12/21 23:54 21 12/12/21 23:40 95.7 F 63 21 145/60 95 12/12/21 22:00 64 19 94 L 12/12/21 21:00 64 12/12/21 19:40 97.7 F 76 20 152/84 95 12/12/21 19:05 96 12/12/21 17:57 77 16 94 L 12/12/21 16:00 98.0 F 71 16 151/86 94 L 12/12/21 14:00 64 18 98 Home Medications Medication Instructions Recorded Confirmed Last Taken Type Lisinopril 5 mg [Zestril 5 5 mg PO DAILY 12/10/21 12/10/21 12/10/21 History MG] Current Medications Generic Name Dose Route Start Last Admin Trade Name Freq PRN Reason Stop Dose Admin Acetaminophen 500 - 1,000 mg 12/10/21 21:26 Acetaminophen 500 Mg Tablet PO 01/09/22 21:25 Q4H PRN PRN Temp > 100.4 Orally Apixaban 10 mg 12/11/21 10:00 12/13/21 07:31 Apixaban 2.5 Mg Tablet PO 12/17/21 22:01 10 mg BID MARGE Administration Apixaban 5 mg 12/18/21 10:00 Apixaban 2.5 Mg Tablet PO 01/17/22 09:59 BID MARGE Baricitinib 4 mg 12/11/21 10:00 12/13/21 07:31 Baricitinib 2 Mg Tablet PO 12/24/21 10:01 4 mg DAILY MARGE Administration Chlorphenir/Hydrocodone Polistirex 5 ml 12/10/21 21:26 Hydrocodone/Chlorphen P-Stirex 1 Ml Dennise.Er.12h PO 01/09/22 21:25 [id number] PRN COUGH Dexamethasone Sodium Phosphate 8 mg 12/11/21 10:00 12/13/21 07:31 Dexamethasone Sod Phosphate 10 Mg/Ml IV 12/21/21 09:59 8 mg DAILY MARGE Administration Folic Acid 1 mg 12/11/21 22:00 12/12/21 21:51 Folic Acid 1 Mg Tablet PO 01/10/22 21:59 1 mg HS MARGE Administration Remdesivir 100 mg/ Sodium 100 mls @ 100 mls/hr 12/11/21 18:00 12/12/21 17:30 Chloride IV 12/14/21 18:59 100 mls/hr Q24H MARGE Administration Lisinopril 2.5 mg 12/11/21 10:00 12/13/21 07:30 Lisinopril 5 Mg Tablet PO 01/10/22 09:59 2.5 mg 0800,1500 MARGE Administration Loratadine 10 mg 12/11/21 22:00 12/12/21 21:51 Loratadine 10 Mg Tablet PO 01/10/22 21:59 10 mg HS MARGE Administration Lorazepam 1 mg 12/10/21 21:26 Lorazepam 2 Mg/1 Ml 2 Mg Vial IV 01/09/22 21:25 Q4H PRN PRN Anxiety/Sleep Lorazepam 1 mg 12/10/21 21:26 12/12/21 21:51 Lorazepam 1 Mg Tablet PO 01/09/22 21:25 1 mg Q4H PRN PRN Administration Anxiety/Sleep Ondansetron HCl 4 mg 12/10/21 21:26 Ondansetron Hcl 4 Mg/2 Ml Vial IV 01/09/22 21:25 Q6H PRN PRN NAUSEA/VOMITING Leflunomide 20mg 1 each 12/11/21 16:00 12/13/21 07:32 Tablet PO 01/10/22 15:59 1 each DAILY MARGE Administration Discontinued Medications Generic Name Dose Route Start Last Admin Trade Name Freq PRN Reason Stop Dose Admin Albuterol Sulfate 4 puff 12/10/21 21:26 Albuterol Common Canister Inhaler IH 01/09/22 21:25 Q4H PRN PRN SHORTNESS OF BREATH/WHEEZING Dexamethasone Sodium Phosphate 8 mg 12/10/21 17:02 12/10/21 17:22 Dexamethasone Sod Phosphate 10 Mg/Ml IV 12/10/21 17:03 8 mg STAT ONE Administration Dexamethasone Sodium Phosphate Confirm 12/10/21 17:17 Dexamethasone Sod Phosphate 10 Mg/Ml Administered 12/10/21 17:18 Dose 10 mg .ROUTE .STK-MED ONE Enoxaparin Sodium 40 mg 12/10/21 17:04 12/10/21 17:22 Enoxaparin Sodium 40 Mg/0.4 Ml Syringe SQ 12/10/21 17:05 40 mg STAT ONE Administration Enoxaparin Sodium Confirm 12/10/21 17:17 Enoxaparin Sodium 80 Mg/0.8 Ml Syringe Administered 12/10/21 17:18 Dose 80 mg SQ .STK-MED ONE Enoxaparin Sodium 44 mg 12/10/21 19:07 12/10/21 19:17 Enoxaparin Sodium 40 Mg/0.4 Ml Syringe SQ 12/10/21 19:08 Not Given STAT ONE Enoxaparin Sodium 44 mg 12/10/21 19:17 12/10/21 19:20 Enoxaparin Sodium 80 Mg/0.8 Ml Syringe SQ 12/10/21 19:18 44 mg STAT ONE Administration Enoxaparin Sodium Confirm 12/10/21 19:19 Enoxaparin Sodium 80 Mg/0.8 Ml Syringe Administered 12/10/21 19:20 Dose 80 mg SQ .STK-MED ONE Enoxaparin Sodium 40 mg 12/11/21 10:00 Enoxaparin Sodium 40 Mg/0.4 Ml Syringe SQ 01/10/22 09:59 DAILY MARGE Sodium Chloride 1,000 mls @ 100 mls/hr 12/10/21 17:00 12/10/21 17:21 Sodium Chloride 0.9% 1000 Ml IV 01/09/22 16:59 100 mls/hr .Q10H MARGE Administration Remdesivir 200 mg/ Sodium 250 mls @ 125 mls/hr 12/10/21 17:04 12/10/21 18:07 Chloride IV 12/10/21 19:03 125 mls/hr ONCE ONE Administration Sodium Chloride Confirm 12/10/21 17:17 Sodium Chloride 0.9% 1000 Ml Administered 12/10/21 17:18 Dose 1,000 mls @ ud .ROUTE .STK-MED ONE Sodium Chloride 1,000 mls @ 0 mls/hr 12/10/21 21:26 Sodium Chloride 0.9% 1000 Ml IV 01/09/22 21:25 .Q0M MARGE KVO Sodium Chloride 1,000 mls @ 70 mls/hr 12/10/21 21:30 12/12/21 16:32 Sodium Chloride 0.9% 1000 Ml IV 01/09/22 21:29 Not Given .[id number] MARGE Sodium Chloride Confirm 12/11/21 04:33 Sodium Chloride 0.9% 1000 Ml Administered 12/11/21 04:34 Dose 1,000 mls @ ud .ROUTE .STK-MED ONE Miscellaneous Information 1 each 12/11/21 08:30 Medication Intervention 1 Each Each PO 01/10/22 08:29 .RN TO CHECK ON MARGE Non-Formulary Medication 1 each 12/11/21 07:51 12/11/21 10:57 Pharmacy Dosing Request MC 12/11/21 07:52 1 each STAT ONE Administration Potassium Chloride 40 meq 12/10/21 17:56 12/10/21 19:21 Potassium Chloride 10 Meq Tablet PO 12/10/21 17:57 40 meq STAT ONE Administration Potassium Chloride Confirm 12/10/21 19:19 Potassium Chloride 10 Meq Tablet Administered 12/10/21 19:20 Dose 40 meq PO .STK-MED ONE Intake & Output (Last 24 hours) 12/11/21 12/12/21 12/13/21 12/14/21 11:59 11:59 11:59 11:59 Intake Total 1287 2338 1200 240 Output Total 1550 1900 2000 Balance -263 438 -800 240 Weight 78.2 kg 78.2 kg Laboratory Results (Last 24 hours) 12/13/21 12/13/21 12/13/21 04:40 04:40 04:40 WBC 5.4 RBC 3.04 L Hgb 9.0 L Hct 27.8 L MCV 91.4 MCH 29.6 MCHC 32.4 RDW 13.3 Plt Count 214 MPV 10.5 D-Dimer 1700 H* Sodium 138 Potassium 3.1 L Chloride 107 Carbon Dioxide 28 Anion Gap 6.2 BUN 14 Creatinine 0.38 L Estimated GFR > 60.0 Glucose 200 H Calcium 7.8 L Total Bilirubin 0.80 AST 61 H ALT 41 H Alkaline Phosphatase 108 Serum Total Protein 5.0 L Albumin 2.5 L Orders (Last 24 hours) Category Date Time Status CBC DAILY Lab 12/13/21 04:40 Completed CBC DAILY Lab 12/14/21 05:00 Ordered CBC DAILY Lab 12/15/21 05:00 Ordered CBC DAILY Lab 12/16/21 05:00 Ordered CBC DAILY Lab 12/17/21 05:00 Ordered CBC DAILY Lab 12/18/21 05:00 Ordered CBC DAILY Lab 12/19/21 05:00 Ordered CBC DAILY Lab 12/20/21 05:00 Ordered CMP DAILY Lab 12/13/21 04:40 Completed CMP DAILY Lab 12/14/21 05:00 Ordered CMP DAILY Lab 12/15/21 05:00 Ordered CMP DAILY Lab 12/16/21 05:00 Ordered CMP DAILY Lab 12/17/21 05:00 Ordered CMP DAILY Lab 12/18/21 05:00 Ordered CMP DAILY Lab 12/19/21 05:00 Ordered CMP DAILY Lab 12/20/21 05:00 Ordered D-DIMER QUANTITATIVE DAILY Lab 12/13/21 04:40 Completed D-DIMER QUANTITATIVE DAILY Lab 12/14/21 05:00 Ordered D-DIMER QUANTITATIVE DAILY Lab 12/15/21 05:00 Ordered D-DIMER QUANTITATIVE DAILY Lab 12/16/21 05:00 Ordered D-DIMER QUANTITATIVE DAILY Lab 12/17/21 05:00 Ordered D-DIMER QUANTITATIVE DAILY Lab 12/18/21 05:00 Ordered D-DIMER QUANTITATIVE DAILY Lab 12/19/21 05:00 Ordered D-DIMER QUANTITATIVE DAILY Lab 12/20/21 05:00 Ordered Apixaban [Eliquis 2.5 mg Tablet] Med 12/18/21 10:00 Active 5 mg PO BID Patient Care Notes (Last 24 hours) 12/13/21 12:35 Case Management Note by Telma Santos REVIEWED CHART- NO CHANGE IN DC NEEDS AT THIS TIME- WILL CONTINUE TO MONITOR Initialized on 12/13/21 12:35 - END OF NOTE 12/12/21 14:52 Nursing Note by Dina Badillo placed on 2L NC and o2 sats 93% Initialized on 12/12/21 14:52 - END OF NOTE Code(s): U07.1 - COVID-19; J12.82 - PNEUMONIA DUE TO CORONAVIRUS DISEASE 2019 (2) COVID-19 Current Visit: Yes Status: Acute Code(s): U07.1 - COVID-19 (3) Hypoxia Current Visit: Yes Status: Acute Code(s): R09.02 - HYPOXEMIA (4) Shortness of breath Current Visit: Yes Status: Acute Code(s): R06.02 - SHORTNESS OF BREATH
[2021-12-13] MEDS: Ativan 1 MG PO PRN ×2 (13:53→21:12)
[2021-12-13] MEDS: REMDESIVIR 100 MG in Sodium Chloride 0.9% 100 ML BAG 100 ML IV SCH (17:31)
[2021-12-13] MEDS: FOLATE 1 MG PO SCH (21:11)
[2021-12-13] MEDS: CLARITIN 10 MG PO SCH (21:11)
[2021-12-14 05:18] LABS: Hematocrit 28.3 % (35-47); Hemoglobin 9.2 gm/dl (12.0-16.0); Mean Cell Volume 90.1 fl (78-100); Mean Corpuscular Hemoglobin 29.3 pg (26-32); Mean Corpuscular Hgb Concent. 32.5 g/dl (32-36); Mean Platelet Volume 10.6 fl (7.5-11.0); Platelet Count 229 K/mm3 (150-450); Red Blood Count 3.14 M/mm3 (4.1-5.4); Red Cell Distribution Width 13.3 % (11.5-14.0)
[2021-12-14 05:39] LABS: ALBUMIN 2.6 g/dL (3.5-5.0); ALKALINE PHOSPHATASE 99 U/L (38-126); ANION GAP 7.3 MEQ/L (5-15); BLOOD UREA NITROGEN 15 mg/dL (7-17); CHLORIDE 105 mmol/L (98-107); Calcium 7.8 mg/dL (8.4-10.2); Carbon Dioxide 29 mmol/L (22-30); Creatinine 1 0.38 mg/dL (0.52-1.04); EST GLOMERULAR FILTRATION RATE > 60.0 ML/MIN; Glucose 200 mg/dL (74-106); SGOT/AST 85 U/L (14-36); SGPT/ALT 60 U/L (0-35); SODIUM 139 mmol/L (137-145); Total Protein 5.1 g/dL (6.3-8.2)
[2021-12-14 05:44] LABS: Potassium 2.9 mmol/L (3.5-5.1)
[2021-12-14] MEDS: POTASSIUM CHLORIDE 20 mEq IN WATER 100ML 20 MEQ/100 ML BAG IV SCH ×2 (05:56→07:55)
--- NOTE | 2021-12-14 07:45 | PCM.NOTE ---
Date and Time: 12/14/21 0743 Subjective Assessment: K 2.9. Otherwise doing ok - Review of Systems Constitutional: No Fever, No Chills Eyes: No Symptoms Ears, Nose, & Throat: No Symptoms Respiratory: Short Of Breath, No Cough Cardiac: Orthopnea, No Chest Pain, No Edema, No Syncope Abdominal/Gastrointestinal: No Abdominal Pain, No Nausea, No Vomiting, No Diarrhea Genitourinary Symptoms: No Dysuria Musculoskeletal: No Back Pain, No Neck Pain Skin: No Rash Neurological: No Dizziness, No Focal Weakness, No Sensory Changes Psychological: No Symptoms Endocrine: No Symptoms Hematologic/Lymphatic: No Symptoms Immunological/Allergic: No Symptoms Objective Exam General Appearance: no apparent distress, alert Neurologic Exam: alert, oriented x 3, cooperative, normal mood/affect, nml cerebellar function, sensation nml, No motor deficits Skin Exam: normal color, warm, dry Eye Exam: PERRL, EOMI, eyes nml inspection Ears, Nose, Throat Exam: normal ENT inspection, pharynx normal, moist mucous membranes Neck Exam: normal inspection, non-tender, supple, full range of motion Respiratory Exam: diminished breath sounds, crackles/rales, rhonchi, wheezing, No respiratory distress Cardiovascular Exam: regular rate/rhythm, normal heart sounds Gastrointestinal/Abdomen Exam: soft, No tenderness, No mass Extremity Exam: normal inspection, normal range of motion Back Exam: normal inspection, normal range of motion, No CVA tenderness, No vertebral tenderness Pelvic Exam: deferred Rectal Exam: deferred OBJECTIVE DATA Vital Signs: Vital Signs - 24 hr Temp Pulse Resp BP Pulse Ox 12/14/21 07:21 97 12/14/21 06:00 53 L 21 93 L 12/14/21 04:00 52 L 21 94 L 12/14/21 02:00 63 20 93 L 12/13/21 23:52 58 L 19 93 L 12/13/21 22:00 59 L 20 94 L 12/13/21 21:00 60 12/13/21 20:00 97.3 F 64 17 150/97 97 12/13/21 18:45 94 L 12/13/21 17:31 97.7 F 81 18 90 L 12/13/21 16:00 97.7 F 58 L 17 138/92 95 12/13/21 13:50 78 17 92 L 12/13/21 12:00 97.7 F 77 24 179/83 90 L 12/13/21 11:43 32 H 12/13/21 10:00 61 32 H 95 12/13/21 08:00 97.5 F 74 32 H 148/81 91 L Pain Assessment - Last Documented Pain Intensity 0 Intake and Output: Intake & Output 12/11/21 12/12/21 12/13/21 12/14/21 11:59 11:59 11:59 11:59 Intake Total 1287 2338 1200 480 Output Total 1550 1900 2000 3400 Balance -263 013 -800 -5156 Weight 78.2 kg 78.2 kg Lab Results: Lab Results-Last 24 Hours 12/14/21 12/14/21 12/14/21 Range/Units 05:00 05:05 05:05 WBC 5.0 (4.0-10.5) K/mm3 RBC 3.14 L (4.1-5.4) M/mm3 Hgb 9.2 L (12.0-16.0) gm/dl Hct 28.3 L (35-47) % MCV 90.1 (78-100) fl MCH 29.3 (26-32) pg MCHC 32.5 (32-36) g/dl RDW 13.3 (11.5-14.0) % Plt Count 229 (150-450) K/mm3 MPV 10.6 (7.5-11.0) fl D-Dimer 1898 H* (215-500) ng/mL Sodium 139 (137-145) mmol/L Potassium 2.9 L* (3.5-5.1) mmol/L Chloride 105 (98-107) mmol/L Carbon Dioxide 29 (22-30) mmol/L Anion Gap 7.3 (5-15) MEQ/L BUN 15 (7-17) mg/dL Creatinine 0.38 L (0.52-1.04) mg/dL Estimated GFR > 60.0 ML/MIN Glucose 200 H (74-106) mg/dL Calcium 7.8 L (8.4-10.2) mg/dL Total Bilirubin 1.00 (0.2-1.3) mg/dL AST 85 H (14-36) U/L ALT 60 H (0-35) U/L Alkaline Phosphatase 99 (38-126) U/L Serum Total Protein 5.1 L (6.3-8.2) g/dL Albumin 2.6 L (3.5-5.0) g/dL Multi-Disciplinary Progress Notes: Multi-Disciplinary Progress Notes 12/13/21 12:35 Case Management Note by Telma Santos REVIEWED CHART- NO CHANGE IN DC NEEDS AT THIS TIME- WILL CONTINUE TO MONITOR Initialized on 12/13/21 12:35 - END OF NOTE Assessment/Plan (1) Pneumonia due to COVID-19 virus Current Visit: Yes Status: Acute Assessment & Plan: Chief Complaint Diagnosis DYLON COVID PNEUMONIA, PULMONARY EMBOLI, HYPOXIA Allergies Allergy/AdvReac Type Severity Reaction Status Date / Time cephalexin monohydrate Allergy Verified 07/09/21 12:34 [From Keflex] epinephrine AdvReac Verified 12/10/21 16:44 Vital Signs (Last 24 hours) Temp Pulse Resp BP Pulse Ox 12/14/21 07:21 97 12/14/21 06:00 53 L 21 93 L 12/14/21 04:00 52 L 21 94 L 12/14/21 02:00 63 20 93 L 12/13/21 23:52 58 L 19 93 L 12/13/21 22:00 59 L 20 94 L 12/13/21 21:00 60 12/13/21 20:00 97.3 F 64 17 150/97 97 12/13/21 18:45 94 L 12/13/21 17:31 97.7 F 81 18 90 L 12/13/21 16:00 97.7 F 58 L 17 138/92 95 12/13/21 13:50 78 17 92 L 12/13/21 12:00 97.7 F 77 24 179/83 90 L 12/13/21 11:43 32 H 12/13/21 10:00 61 32 H 95 12/13/21 08:00 97.5 F 74 32 H 148/81 91 L Home Medications Medication Instructions Recorded Confirmed Last Taken Type Lisinopril 5 mg [Zestril 5 5 mg PO DAILY 12/10/21 12/10/21 12/10/21 History MG] Current Medications Generic Name Dose Route Start Last Admin Trade Name Freq PRN Reason Stop Dose Admin Acetaminophen 500 - 1,000 mg 12/10/21 21:26 Acetaminophen 500 Mg Tablet PO 01/09/22 21:25 Q4H PRN PRN Temp > 100.4 Orally Apixaban 10 mg 12/11/21 10:00 12/13/21 21:12 Apixaban 2.5 Mg Tablet PO 12/17/21 22:01 10 mg BID MARGE Administration Apixaban 5 mg 12/18/21 10:00 Apixaban 2.5 Mg Tablet PO 01/17/22 09:59 BID MARGE Baricitinib 4 mg 12/11/21 10:00 12/13/21 07:31 Baricitinib 2 Mg Tablet PO 12/24/21 10:01 4 mg DAILY MARGE Administration Chlorphenir/Hydrocodone Polistirex 5 ml 12/10/21 21:26 Hydrocodone/Chlorphen P-Stirex 1 Ml Dennise.Er.12h PO 01/09/22 21:25 [id number] PRN COUGH Dexamethasone Sodium Phosphate 8 mg 12/11/21 10:00 12/13/21 07:31 Dexamethasone Sod Phosphate 10 Mg/Ml IV 12/21/21 09:59 8 mg DAILY MARGE Administration Folic Acid 1 mg 12/11/21 22:00 12/13/21 21:11 Folic Acid 1 Mg Tablet PO 01/10/22 21:59 1 mg HS MARGE Administration Remdesivir 100 mg/ Sodium 100 mls @ 100 mls/hr 12/11/21 18:00 12/13/21 17:31 Chloride IV 12/14/21 18:59 100 mls/hr Q24H MARGE Administration Potassium Chloride 20 meq in 100 mls @ 50 mls/hr 12/14/21 06:00 12/14/21 05:56 Potassium Chloride 20 Meq In Water 100ml IV 12/14/21 09:59 50 mls/hr Q2H MARGE Administration Lisinopril 2.5 mg 12/11/21 10:00 12/13/21 13:53 Lisinopril 5 Mg Tablet PO 01/10/22 09:59 2.5 mg 0800,1500 MARGE Administration Loratadine 10 mg 12/11/21 22:00 12/13/21 21:11 Loratadine 10 Mg Tablet PO 01/10/22 21:59 10 mg HS MARGE Administration Lorazepam 1 mg 12/10/21 21:26 Lorazepam 2 Mg/1 Ml 2 Mg Vial IV 01/09/22 21:25 Q4H PRN PRN Anxiety/Sleep Lorazepam 1 mg 12/10/21 21:26 12/13/21 21:12 Lorazepam 1 Mg Tablet PO 01/09/22 21:25 1 mg Q4H PRN PRN Administration Anxiety/Sleep Ondansetron HCl 4 mg 12/10/21 21:26 Ondansetron Hcl 4 Mg/2 Ml Vial IV 01/09/22 21:25 Q6H PRN PRN NAUSEA/VOMITING Leflunomide 20mg 1 each 12/11/21 16:00 12/13/21 07:32 Tablet PO 01/10/22 15:59 1 each DAILY MARGE Administration Discontinued Medications Generic Name Dose Route Start Last Admin Trade Name Freq PRN Reason Stop Dose Admin Albuterol Sulfate 4 puff 12/10/21 21:26 Albuterol Common Canister Inhaler IH 01/09/22 21:25 Q4H PRN PRN SHORTNESS OF BREATH/WHEEZING Dexamethasone Sodium Phosphate 8 mg 12/10/21 17:02 12/10/21 17:22 Dexamethasone Sod Phosphate 10 Mg/Ml IV 12/10/21 17:03 8 mg STAT ONE Administration Dexamethasone Sodium Phosphate Confirm 12/10/21 17:17 Dexamethasone Sod Phosphate 10 Mg/Ml Administered 12/10/21 17:18 Dose 10 mg .ROUTE .STK-MED ONE Enoxaparin Sodium 40 mg 12/10/21 17:04 12/10/21 17:22 Enoxaparin Sodium 40 Mg/0.4 Ml Syringe SQ 12/10/21 17:05 40 mg STAT ONE Administration Enoxaparin Sodium Confirm 12/10/21 17:17 Enoxaparin Sodium 80 Mg/0.8 Ml Syringe Administered 12/10/21 17:18 Dose 80 mg SQ .STK-MED ONE Enoxaparin Sodium 44 mg 12/10/21 19:07 12/10/21 19:17 Enoxaparin Sodium 40 Mg/0.4 Ml Syringe SQ 12/10/21 19:08 Not Given STAT ONE Enoxaparin Sodium 44 mg 12/10/21 19:17 12/10/21 19:20 Enoxaparin Sodium 80 Mg/0.8 Ml Syringe SQ 12/10/21 19:18 44 mg STAT ONE Administration Enoxaparin Sodium Confirm 12/10/21 19:19 Enoxaparin Sodium 80 Mg/0.8 Ml Syringe Administered 12/10/21 19:20 Dose 80 mg SQ .STK-MED ONE Enoxaparin Sodium 40 mg 12/11/21 10:00 Enoxaparin Sodium 40 Mg/0.4 Ml Syringe SQ 01/10/22 09:59 DAILY MARGE Sodium Chloride 1,000 mls @ 100 mls/hr 12/10/21 17:00 12/10/21 17:21 Sodium Chloride 0.9% 1000 Ml IV 01/09/22 16:59 100 mls/hr .Q10H MARGE Administration Remdesivir 200 mg/ Sodium 250 mls @ 125 mls/hr 12/10/21 17:04 12/10/21 18:07 Chloride IV 12/10/21 19:03 125 mls/hr ONCE ONE Administration Sodium Chloride Confirm 12/10/21 17:17 Sodium Chloride 0.9% 1000 Ml Administered 12/10/21 17:18 Dose 1,000 mls @ ud .ROUTE .STK-MED ONE Sodium Chloride 1,000 mls @ 0 mls/hr 12/10/21 21:26 Sodium Chloride 0.9% 1000 Ml IV 01/09/22 21:25 .Q0M MARGE KVO Sodium Chloride 1,000 mls @ 70 mls/hr 12/10/21 21:30 12/12/21 16:32 Sodium Chloride 0.9% 1000 Ml IV 01/09/22 21:29 Not Given .[id number] MARGE Sodium Chloride Confirm 12/11/21 04:33 Sodium Chloride 0.9% 1000 Ml Administered 12/11/21 04:34 Dose 1,000 mls @ ud .ROUTE .STK-MED ONE Miscellaneous Information 1 each 12/11/21 08:30 Medication Intervention 1 Each Each PO 01/10/22 08:29 .RN TO CHECK ON MARGE Non-Formulary Medication 1 each 12/11/21 07:51 12/11/21 10:57 Pharmacy Dosing Request MC 12/11/21 07:52 1 each STAT ONE Administration Potassium Chloride 40 meq 12/10/21 17:56 12/10/21 19:21 Potassium Chloride 10 Meq Tablet PO 12/10/21 17:57 40 meq STAT ONE Administration Potassium Chloride Confirm 12/10/21 19:19 Potassium Chloride 10 Meq Tablet Administered 12/10/21 19:20 Dose 40 meq PO .STK-MED ONE Intake & Output (Last 24 hours) 12/11/21 12/12/21 12/13/21 12/14/21 11:59 11:59 11:59 11:59 Intake Total 1287 2338 1200 480 Output Total 1550 1900 2000 3400 Balance -263 415 -618 -1988 Weight 78.2 kg 78.2 kg Laboratory Results (Last 24 hours) 12/14/21 12/14/21 12/14/21 05:05 05:05 05:00 WBC 5.0 RBC 3.14 L Hgb 9.2 L Hct 28.3 L MCV 90.1 MCH 29.3 MCHC 32.5 RDW 13.3 Plt Count 229 MPV 10.6 D-Dimer 1898 H* Sodium 139 Potassium 2.9 L* Chloride 105 Carbon Dioxide 29 Anion Gap 7.3 BUN 15 Creatinine 0.38 L Estimated GFR > 60.0 Glucose 200 H Calcium 7.8 L Total Bilirubin 1.00 AST 85 H ALT 60 H Alkaline Phosphatase 99 Serum Total Protein 5.1 L Albumin 2.6 L Orders (Last 24 hours) Category Date Time Status CBC DAILY Lab 12/14/21 05:00 Completed CBC DAILY Lab 12/15/21 05:00 Ordered CBC DAILY Lab 12/16/21 05:00 Ordered CBC DAILY Lab 12/17/21 05:00 Ordered CBC DAILY Lab 12/18/21 05:00 Ordered CBC DAILY Lab 12/19/21 05:00 Ordered CBC DAILY Lab 12/20/21 05:00 Ordered CMP DAILY Lab 12/14/21 05:05 Completed CMP DAILY Lab 12/15/21 05:00 Ordered CMP DAILY Lab 12/16/21 05:00 Ordered CMP DAILY Lab 12/17/21 05:00 Ordered CMP DAILY Lab 12/18/21 05:00 Ordered CMP DAILY Lab 12/19/21 05:00 Ordered CMP DAILY Lab 12/20/21 05:00 Ordered D-DIMER QUANTITATIVE DAILY Lab 12/14/21 05:05 Completed D-DIMER QUANTITATIVE DAILY Lab 12/15/21 05:00 Ordered D-DIMER QUANTITATIVE DAILY Lab 12/16/21 05:00 Ordered D-DIMER QUANTITATIVE DAILY Lab 12/17/21 05:00 Ordered D-DIMER QUANTITATIVE DAILY Lab 12/18/21 05:00 Ordered D-DIMER QUANTITATIVE DAILY Lab 12/19/21 05:00 Ordered D-DIMER QUANTITATIVE DAILY Lab 12/20/21 05:00 Ordered Apixaban [Eliquis 2.5 mg Tablet] Med 12/18/21 10:00 Active 5 mg PO BID Potassium Chloride 20Meq/100Ml [POTASSIUM CHLORIDE 20 Med 12/14/21 06:00 Active mEq IN WATER 100ML] 20 meq in 100 ml IV Q2H Patient Care Notes (Last 24 hours) 12/14/21 06:06 Nursing Note by Karmne Garza PT CRITICAL POTASSIUM OF 2.[address] MURPHY. HE ORDER 40 K RIDER. ORDERS WERE ENTERED. WILL CONTINUE TO MONITOR. Initialized on 12/14/21 06:06 - END OF NOTE 12/14/21 05:16 Nursing Note by Karmen Garza PT IS CURRENTLY ON 2L NC. SHE IS SATTING 90/97%. WHEN SHE GOT UP TO GO TO THE BATHROOM SHE DESATTED TO 84/88%. IT TOOK HER 2-3 MINUTES TO RECOVER TO 92%. WILL CONTINUE TO MONITOR. Initialized on 12/14/21 05:16 - END OF NOTE 12/13/21 12:35 Case Management Note by Telma Santos REVIEWED CHART- NO CHANGE IN DC NEEDS AT THIS TIME- WILL CONTINUE TO MONITOR Initialized on 12/13/21 12:35 - END OF NOTE Code(s): U07.1 - COVID-19; J12.82 - PNEUMONIA DUE TO CORONAVIRUS DISEASE 2019 (2) COVID-19 Current Visit: Yes Status: Acute Code(s): U07.1 - COVID-19 (3) Hypoxia Current Visit: Yes Status: Acute Code(s): R09.02 - HYPOXEMIA (4) Shortness of breath Current Visit: Yes Status: Acute Code(s): R06.02 - SHORTNESS OF BREATH
[2021-12-14] MEDS: Zestril 5 MG PO SCH (07:56)
[2021-12-14] MEDS: ELIQUIS 2.5 MG TABLET PO SCH (08:40)
[2021-12-14] MEDS: DECADRON 10MG INJ. IV SCH (08:41)
[2021-12-14] MEDS: OLUMIANT PO SCH (08:41)
[2021-12-14] MEDS: PATIENT OWN MEDICATION PO SCH (08:43)
[2021-12-14] MEDS ORDERED: K-LYTE 25 MEQ PO ONE (09:42)
[2021-12-14 12:18] VITALS: BP 152/87; PULSE 69; O2SAT 90
[2021-12-18] MEDS ORDERED: ELIQUIS 2.5 MG TABLET PO SCH (10:00)
== END 2021-12-14 13:49 | disposition still patient (30) | DRG 177 ==
LOC: ED 16:38 → MED SURG 20:40 → ED 20:41 → OBSVTOIN 12-11 08:20
PROVIDERS: ADMIT Family Medicine; ATTEND Family Medicine
DX: U07.1 COVID-19 (principal); J12.82 Pneumonia due to coronavirus disease 2019; I26.99 Other pulmonary embolism without acute cor pulmonale; R09.02 Hypoxemia; R06.02 Shortness of breath; I10 Essential (primary) hypertension; E87.6 Hypokalemia; Z79.899 Other long term (current) drug therapy; Z79.01 Long term (current) use of anticoagulants
CPT/HCPCS: 36000; 36415; 71045; 71260; 80053; 84132; 85025; 85027; 85379; 87040; 93005; 93041; 93268; 94760; 94762; 96365; 96372; 96374; 99285; G0378; J0248; J1100; J1650; J3480; A9270-GY

== ENCOUNTER 2022-05-22 17:40 | Emergency (ER) | payer MEDICARE, OTHER ==
[2022-05-22] MEDS ORDERED: Sodium Chloride 0.9% 1000 ML 2,000 ML ONE (18:00)
[2022-05-22] MEDS ORDERED: TORAdol 30 mg Injection ONE (18:00)
[2022-05-22] MEDS ORDERED: Zofran 4 MG/2 ML VIAL ONE (18:00)
[2022-05-22] MEDS: Zofran 4 MG/2 ML VIAL IV ONE (18:02)
[2022-05-22] MEDS: TORAdol 30 mg Injection IV ONE (18:02)
[2022-05-22] MEDS: Sodium Chloride 0.9% 1000 ML 1,000 ML IV STA ×2 (18:02)
[2022-05-22 18:20] LABS: Absolute Neutrophil Ct (ANC) 4.83 x10^3/uL (1.4-6.9); Basophil (Absolute #) 0.06 x10^3/uL (0-0.4); Eosinophil % 0.2 % (0.00-5.0); Eosinophil (Absolute #) 0.02 x10^3/uL (0-0.5); Hematocrit 33.9 % (35-47); Lymphocyte (Absolute #) 2.27 x10^3/uL (1.0-4.6); Mean Cell Volume 92.9 fL (78-100); Mean Corpuscular Hemoglobin 30.1 pg (26-32); Mean Corpuscular Hgb Concent. 32.4 g/dL (32-36); Mean Platelet Volume 10.4 fL (7.5-11.0); Monocyte (Absolute #) 0.87 x10^3/uL (0.0-1.3); Monocytes % 10.7 % (0.0-12.0); Neutrophil % 59.8 % (36.0-66.0); Platelet Count 241 x10^3/uL (150-450); Red Blood Count 3.65 x10^6/uL (4.1-5.4); Red Cell Distribution Width 14.9 % (11.5-14.0); White Blood Count 8.1 x10^3/uL (4.0-10.5)
[2022-05-22 18:32] LABS: ALBUMIN 3.9 g/dL (3.5-5.0); ALKALINE PHOSPHATASE 110 U/L (38-126); ANION GAP 11.6 MEQ/L (5-15); BLOOD UREA NITROGEN 16 mg/dL (7-17); CHLORIDE 107 mmol/L (98-107); Calcium 9.3 mg/dL (8.4-10.2); Carbon Dioxide 23 mmol/L (22-30); Creatinine 1 0.73 mg/dL (0.52-1.04); EST GLOMERULAR FILTRATION RATE > 60.0 ML/MIN; Glucose 93 mg/dL (74-106); LIPASE 59 U/L (23-300); Potassium 3.9 mmol/L (3.5-5.1); SGOT/AST 30 U/L (14-36); SGPT/ALT 20 U/L (0-35); SODIUM 138 mmol/L (137-145); Total Protein 6.8 g/dL (6.3-8.2)
--- NOTE | 2022-05-22 18:55 | ERPHSYRPT ---
- History of Present Illness Source: patient Exam Limitations: no limitations Patient Subjective Stated Complaint: PT states "[place]." Triage Nursing Assessment: Pt presented alert and oriente X3, skin pwd. Pt resting comfortably on the cot. Pt warm to touch, pt has generalized weakness. pt in no apparent respiratory distress. Timing/Duration: today Severity: mild Modifying Factors: Improves With: cold therapy Associated Symptoms: nausea, vomiting, diaphoresis, headaches, syncope (Near syncope) Hx Tetanus, Diphtheria Vaccination/Date Given: No Hx Influenza Vaccination/Date Given: No Hx Pneumococcal Vaccination/Date Given: No Immunizations Up to Date: Yes <REJI MERCER - Last Filed: 05/22/22 18:51> <JESSE RAUSCH - Last Filed: 05/22/22 20:12> - History of Present Illness Time Seen by Provider: 05/22/22 17:50 Physician History: Patient is a 66-year-old white female who was outside in the weather today and suffered apparent heat exhaustion. While she was in the Barn.. She was brought in by EMS who was unable to start IV fluids and she was treated with ice packs coming and was improving by the time she got to the ER apparently initially had some slight confusion. (REJI MERCER) Allergies/Adverse Reactions: cephalexin monohydrate [From Keflex] Allergy (Verified 07/09/21 12:34) epinephrine Adverse Reaction (Verified 12/10/21 16:44) Home Medications: Folic Acid 1 mg PO DAILY 07/27/19 [History] Leflunomide [Arava] 20 mg PO DAILY 07/27/19 [History] Levocetirizine Dihydrochloride [Xyzal] 5 mg PO DAILY 07/27/19 [History] Lisinopril 5 mg [Zestril 5 MG] 5 mg PO DAILY 12/10/21 [History] Travel Risk - International Travel Have you traveled outside of the country in past 3 weeks: No - Coronavirus Screening Are you exhibiting any of the following symptoms?: No Close contact with a COVID-19 positive Pt in past 14-21 Days: No - Vaccine Status Have you recieved a Covid-19 vaccination: Yes [employer]: [employer] - Vaccination Dates Date of 2cond Vaccination (if applicable): 07/2021 <REJI MERCER Last Filed: 05/22/22 18:51> - Review of Systems Constitutional: No Fever, No Chills Eyes: No Symptoms Ears, Nose, & Throat: No Symptoms Respiratory: No Cough, No Dyspnea Cardiac: No Chest Pain, No Edema, No Syncope Abdominal/Gastrointestinal: Nausea, Vomiting, No Abdominal Pain, No Diarrhea Genitourinary Symptoms: No Dysuria Musculoskeletal: No Back Pain, No Neck Pain Skin: No Rash Neurological: Other (Near syncope), No Dizziness, No Focal Weakness, No Sensory Changes Psychological: No Symptoms Endocrine: No Symptoms All Other Systems: Reviewed and Negative <REJI MERCER Last Filed: 05/22/22 18:51> - Past Medical History Pertinent Past Medical History: Yes Neurological History: No Pertinent History ENT History: No Pertinent History Cardiac History: Hypertension Respiratory History: No Pertinent History Endocrine Medical History: No Pertinent History Musculoskeletal History: Rheumatoid Arthritis GI Medical History: No Pertinent History History: No Pertinent History Psycho-Social History: No Pertinent History Female Reproductive Disorders: No Pertinent History Other Medical History: L shoulder surgery, Covid + 11/27/2021 - Past Surgical History Past Surgical History: Yes Neuro Surgical History: No Pertinent History Cardiac: No Pertinent History Respiratory: No Pertinent History Gastrointestinal: Cholecystectomy Genitourinary: No Pertinent History Musculoskeletal: No Pertinent History Female Surgical History: Hysterectomy - Social History Smoking Status: Never smoker Exposure to second hand smoke: No Drug Use: none Patient Lives Alone: No <REJI MERCER Last Filed: 05/22/22 18:51> - Physical Exam General Appearance: no apparent distress, alert Eye Exam: PERRL/EOMI, eyes nml inspection Ears, Nose, Throat Exam: normal ENT inspection, TMs normal, pharynx normal, moist mucous membranes Neck Exam: normal inspection, non-tender, supple, full range of motion Respiratory Exam: normal breath sounds, lungs clear, No respiratory distress Cardiovascular Exam: regular rate/rhythm, normal heart sounds, normal peripheral pulses Gastrointestinal/Abdomen Exam: soft, normal bowel sounds, No tenderness, No mass Back Exam: normal inspection, normal range of motion, No CVA tenderness, No vertebral tenderness Extremity Exam: normal inspection, normal range of motion, pelvis stable Neurologic Exam: alert, oriented x 3, cooperative, normal mood/affect, nml cerebellar function, nml station & gait, sensation nml, No motor deficits Skin Exam: normal color, warm, dry, No rash Lymphatic Exam: No adenopathy SpO2: 96 <REJI MERCER - Last Filed: 05/22/22 18:51> - Nursing Vital Signs Nursing Vital Signs: Initial Vital Signs Temperature 98.9 F 05/22/22 17:41 Pulse Rate 86 05/22/22 17:41 Respiratory Rate 22 05/22/22 17:41 Blood Pressure 138/86 05/22/22 17:41 O2 Sat by Pulse Oximetry 96 05/22/22 17:41 Pain Scale Pain Intensity 0 - Course Nursing assessment & vital signs reviewed: Yes <REJI MERCER - Last Filed: 05/22/22 18:51> Ordered Tests: Active Orders 24 hr Category Date Time Status EKG-ER Only STAT Care 05/22/22 17:45 Active IV Insertion STAT Care 05/22/22 17:45 Active CBC W DIFF Stat Lab 05/22/22 18:14 Completed CMP Stat Lab 05/22/22 18:14 Completed LIPASE Stat Lab 05/22/22 18:14 Completed Lactic Acid Stat Lab 05/22/22 18:00 Completed TROPONIN Q3H Lab 05/22/22 18:00 Completed TROPONIN Q3H Lab 05/22/22 21:00 Ordered TROPONIN Q3H Lab 05/23/22 00:00 Ordered TROPONIN Q3H Lab 05/23/22 03:00 Ordered TROPONIN Q3H Lab 05/23/22 06:00 Ordered UA W/RFX CULTURE Stat Lab 05/22/22 19:30 Completed Medication Summary Discontinued Medications Generic Name Dose Route Start Last Admin Trade Name Tashia PRN Reason Stop Dose Admin Sodium Chloride 1,000 mls @ 999 mls/hr 05/22/22 17:45 05/22/22 19:04 Sodium Chloride 0.9% 1000 Ml IV 05/22/22 18:45 Infused .Q1H1M STA Infusion Sodium Chloride 1,000 mls @ 999 mls/hr 05/22/22 17:47 05/22/22 19:04 Sodium Chloride 0.9% 1000 Ml IV 05/22/22 18:47 Infused .Q1H1M STA Infusion Sodium Chloride Confirm 05/22/22 18:00 Sodium Chloride 0.9% 1000 Ml Administered 05/22/22 18:01 Dose 2,000 mls @ ud .ROUTE .STK-MED ONE Ketorolac Tromethamine 30 mg 05/22/22 17:59 05/22/22 18:02 Ketorolac Tromethamine 30 Mg/Ml Inj IV 05/22/22 18:00 30 mg STAT ONE Administration Ketorolac Tromethamine Confirm 05/22/22 18:00 Ketorolac Tromethamine 30 Mg/Ml Inj Administered 05/22/22 18:01 Dose 30 mg .ROUTE .STK-MED ONE Ondansetron HCl 4 mg 05/22/22 17:45 05/22/22 18:02 Ondansetron Hcl 4 Mg/2 Ml Vial IV 05/22/22 17:46 4 mg STAT ONE Administration Ondansetron HCl Confirm 05/22/22 18:00 Ondansetron Hcl 4 Mg/2 Ml Vial Administered 05/22/22 18:01 Dose 4 mg .ROUTE .STK-MED ONE Lab/Rad Data: Laboratory Result Diagrams 05/22/22 18:14 05/22/22 18:14 Laboratory Results 05/22/22 05/22/22 05/22/22 Range/Units 19:30 18:14 18:14 WBC 8.1 (4.0-10.5) x10^3/uL RBC 3.65 L (4.1-5.4) x10^6/uL Hgb 11.0 L (12.0-16.0) g/dL Hct 33.9 L (35-47) % MCV 92.9 (78-100) fL MCH 30.1 (26-32) pg MCHC 32.4 (32-36) g/dL RDW 14.9 H (11.5-14.0) % Plt Count 241 (150-450) x10^3/uL MPV 10.4 (7.5-11.0) fL Gran % 59.8 (36.0-66.0) % Immature Gran % (Auto) 0.6 H (0.00-0.4) % Nucleat RBC Rel Count 0.0 (0.00-0.1) % Eos # (Auto) 0.02 (0-0.5) x10^3/uL Immature Gran # (Auto) 0.05 H (0.00-0.03) x10^3u/L Absolute Lymphs (auto) 2.27 (1.0-4.6) x10^3/uL Absolute Monos (auto) 0.87 (0.0-1.3) x10^3/uL Absolute Nucleated RBC 0.00 (0.00-0.01) x10^3u/L Lymphocytes % 28.0 (24.0-44.0) % Monocytes % 10.7 (0.0-12.0) % Eosinophils % 0.2 (0.00-5.0) % Basophils % 0.7 (0.0-0.4) % Absolute Granulocytes 4.83 (1.4-6.9) x10^3/uL Basophils # 0.06 (0-0.4) x10^3/uL Sodium 138 (137-145) mmol/L Potassium 3.9 (3.5-5.1) mmol/L Chloride 107 (98-107) mmol/L Carbon Dioxide 23 (22-30) mmol/L Anion Gap 11.6 (5-15) MEQ/L BUN 16 (7-17) mg/dL Creatinine 0.73 (0.52-1.04) mg/dL Estimated GFR > 60.0 ML/MIN Glucose 93 (74-106) mg/dL Lactic Acid (0.4-2.0) Calcium 9.3 (8.4-10.2) mg/dL Total Bilirubin 0.60 (0.2-1.3) mg/dL AST 30 (14-36) U/L ALT 20 (0-35) U/L Alkaline Phosphatase 110 (38-126) U/L Troponin I (0.000-0.034) ng/mL Serum Total Protein 6.8 (6.3-8.2) g/dL Albumin 3.9 (3.5-5.0) g/dL Lipase 59 (23-300) U/L Urinalys Dipstick Clnc MAIN LAB Urine Color YELLOW (YELLOW) Urine Appearance CLEAR (CLEAR) Urine pH 5.5 (5-6) Ur Specific [place] 1.010 (1.005-1.025) POC Urine Protein Conf NEGATIVE (Negative) Urine Ketones NEGATIVE (NEGATIVE) Urine Nitrite NEGATIVE (NEGATIVE) Urine Bilirubin NEGATIVE (NEGATIVE) Urine Urobilinogen 0.2 (0-1) mg/dL Urine Leukocytes NEGATIVE (NEGATIVE) Urine WBC (Auto) 3-5 (0-5) /HPF Urine RBC (Auto) NONE (0-2) /HPF U Epithel Cells (Auto) NONE (FEW) /HPF Urine Bacteria (Auto) NONE (NEGATIVE) /HPF Urine RBC NEGATIVE (0-5) Kevon/ul Urine Mucus (Auto) SLIGHT (NEGATIVE) /HPF Ur Culture Indicated? NO Urine Glucose NEGATIVE (NEGATIVE) mg/dL 05/22/22 05/22/22 Range/Units 18:00 18:00 WBC (4.0-10.5) x10^3/uL RBC (4.1-5.4) x10^6/uL Hgb (12.0-16.0) g/dL Hct (35-47) % MCV (78-100) fL MCH (26-32) pg MCHC (32-36) g/dL RDW (11.5-14.0) % Plt Count (150-450) x10^3/uL MPV (7.5-11.0) fL Gran % (36.0-66.0) % Immature Gran % (Auto) (0.00-0.4) % Nucleat RBC Rel Count (0.00-0.1) % Eos # (Auto) (0-0.5) x10^3/uL Immature Gran # (Auto) (0.00-0.03) x10^3u/L Absolute Lymphs (auto) (1.0-4.6) x10^3/uL Absolute Monos (auto) (0.0-1.3) x10^3/uL Absolute Nucleated RBC (0.00-0.01) x10^3u/L Lymphocytes % (24.0-44.0) % Monocytes % (0.0-12.0) % Eosinophils % (0.00-5.0) % Basophils % (0.0-0.4) % Absolute Granulocytes (1.4-6.9) x10^3/uL Basophils # (0-0.4) x10^3/uL Sodium (137-145) mmol/L Potassium (3.5-5.1) mmol/L Chloride (98-107) mmol/L Carbon Dioxide (22-30) mmol/L Anion Gap (5-15) MEQ/L BUN (7-17) mg/dL Creatinine (0.52-1.04) mg/dL Estimated GFR ML/MIN Glucose (74-106) mg/dL Lactic Acid 1.0 (0.4-2.0) Calcium (8.4-10.2) mg/dL Total Bilirubin (0.2-1.3) mg/dL AST (14-36) U/L ALT (0-35) U/L Alkaline Phosphatase (38-126) U/L Troponin I < 0.012 (0.000-0.034) ng/mL Serum Total Protein (6.3-8.2) g/dL Albumin (3.5-5.0) g/dL Lipase (23-300) U/L Urinalys Dipstick Clnc Urine Color (YELLOW) Urine Appearance (CLEAR) Urine pH (5-6) Ur Specific [place] (1.005-1.025) POC Urine Protein Conf (Negative) Urine Ketones (NEGATIVE) Urine Nitrite (NEGATIVE) Urine Bilirubin (NEGATIVE) Urine Urobilinogen (0-1) mg/dL Urine Leukocytes (NEGATIVE) Urine WBC (Auto) (0-5) /HPF Urine RBC (Auto) (0-2) /HPF U Epithel Cells (Auto) (FEW) /HPF Urine Bacteria (Auto) (NEGATIVE) /HPF Urine RBC (0-5) Kevon/ul Urine Mucus (Auto) (NEGATIVE) /HPF Ur Culture Indicated? Urine Glucose (NEGATIVE) mg/dL - Progress Progress: improved Counseled pt/family regarding: lab results, diagnosis, need for follow-up <JESSE RAUSCH - Last Filed: 05/22/22 20:12> - Progress Progress Note: 05/22/22 20:11 Drink plenty of fluids. Avoid heat exposure over the next 48 hours. Follow-up with your prescribing provider for further evaluation management. (JESSE RAUSCH) - Departure Departure Disposition: Home Critical Care Time: No <REJI MERCER - Last Filed: 05/22/22 18:51> <JESSE RAUSCH - Last Filed: 05/22/22 20:12> - Departure Clinical Impression: Heat exhaustion Condition: Stable Referrals: BRYAN HODGES [Primary Care Provider] - Follow up/PCP as directed Instructions: Heat Exhaustion and Heat Stroke (DC) Additional Instructions: Drink plenty of cool liquids. Avoid exposure to heat over the next 48 hours. Call your prescribing provider tomorrow morning to make arrangements for follow- up for further evaluation and management.
[2022-05-22 19:51] LABS: Appearance CLEAR (CLEAR)
[2022-05-22 19:52] VITALS: O2SAT 95
[2022-05-22 19:52] LABS: Bilirubin NEGATIVE (NEGATIVE); Glucose NEGATIVE (NEGATIVE); Ketones NEGATIVE (NEGATIVE); Ph 5.5 (5-6); Protein,Urine Dip NEGATIVE (Negative); RBC NEGATIVE Ery/ul (0-5)
[2022-05-22 19:53] LABS: Dipstick done @ ? MAIN LAB; Nitrite NEGATIVE (NEGATIVE); Urobilinogen 0.2 mg/dL (0-1)
[2022-05-22 20:01] LABS: Mucus SLIGHT /HPF (NEGATIVE); Urine Cultured Indicated? NO
[2022-05-22 20:03] VITALS: BP 141/79; PULSE 76
== END 2022-05-22 20:27 | disposition home or self-care (01) ==
LOC: ED 17:40
DX: T67.5XXA Heat exhaustion, unspecified, initial encounter (principal); R41.0 Disorientation, unspecified; R11.2 Nausea with vomiting, unspecified; R51.9 Headache, unspecified; R55 Syncope and collapse; I10 Essential (primary) hypertension; Z79.899 Other long term (current) drug therapy; Z86.16 Personal history of COVID-19
CPT/HCPCS: 36000; 36415; 80053; 81015; 83605; 83690; 84484; 85025; 93005; 96374; 96375; 99284; J1885; J2405

== ENCOUNTER 2024-09-21 14:09 | Observation (INO) | payer MEDICARE, OTHER ==
[2024-09-21] MEDS ORDERED: Zofran 4 MG/2 ML VIAL ONE (14:31)
[2024-09-21] MEDS ORDERED: Sodium Chloride 0.9% 1000 ML 1,000 ML ONE (14:32)
[2024-09-21] MEDS: Sodium Chloride 0.9% 1000 ML 1,000 ML IV SCH (14:33)
[2024-09-21] MEDS: Zofran 4 MG/2 ML VIAL IV ONE (14:33)
[2024-09-21 14:49] LABS: Absolute Neutrophil Ct (ANC) 9.36 x10^3/uL (1.56-6.13); BASOPHIL % 0.2 % (0.1-1.2); Basophil (Absolute #) 0.02 x10^3/uL (0.01-0.08); Eosinophil (Absolute #) 0 x10^3/uL (0.04-0.36); Hemoglobin 11.9 g/dL (11.2-15.7); IMMATURE GRAN # 0.09 x10^3u/L (0.001-0.031); IMMATURE GRAN % 0.9 % (0.001-0.429); Lymphocyte (Absolute #) 0.38 x10^3/uL (1.18-3.74); Lymphocytes % 3.8 % (19.3-51.7); Mean Cell Volume 90.5 fL (79.4-94.8); Mean Corpuscular Hemoglobin 29.9 pg (25.6-32.2); Mean Corpuscular Hgb Concent. 33.1 g/dL (32.2-35.5); Mean Platelet Volume 10.4 fL (9.4-12.3); Monocyte (Absolute #) 0.07 x10^3/uL (0.24-0.86); Monocytes % 0.7 % (4.7-12.5); Neutrophil % 94.4 % (34.0-71.1); Platelet Count 185 x10^3/uL (182-369); Red Blood Count 3.98 x10^6/uL (3.93-5.22); Red Cell Distribution Width 13.8 % (11.7-14.4); White Blood Count 9.9 x10^3/uL (3.98-10.04)
[2024-09-21 15:02] LABS: ALBUMIN 3.8 g/dL (3.5-5.0); ANION GAP 12.3 MEQ/L (5-15); BILIRUBIN,TOTAL 0.6 mg/dL (0.2-1.3); Calcium 9.3 mg/dL (8.4-10.2); Creatinine 1 0.61 mg/dL (0.52-1.04); EST GLOMERULAR FILTRATION RATE 97.3 ML/MIN; Potassium 3.5 mmol/L (3.5-5.1); Total Protein 6.3 g/dL (6.3-8.2)
[2024-09-21 15:18] LABS: Appearance Cloudy (Clear); Bacteria None Seen /HPF (None Seen); Bilirubin Small (Negative); Blood Moderate (Negative); Epithelial Cells None Seen /HPF (None Seen); Glucose, Urine Negative (Negative); Hyaline Casts NONE SEEN /LPF (0-2); Ketones Negative (Negative); Leukocyte Esterase Moderate (Negative); Nitrite Positive (Negative); Protein,Urine Dip Trace (Negative); RBC 21-50 /HPF (0-5); Specific Gravity 1.015 (1.005-1.030); WBC 21-50 /HPF (0-5)
--- NOTE | 2024-09-21 16:05 | ERPHSYRPT ---
- History of Present Illness Time Seen by Provider: 09/21/24 14:20 Source: patient Exam Limitations: no limitations Patient Subjective Stated Complaint: PT. STATES, "I AM RED AND RAW DOWN IN MY VAGINAL AREA, TODAY I HAD BLOOD CLOTS IN MY URINE. I JUST FEEL SO WEAK AND RUN DOWN, I HAVE A FEVER". Triage Nursing Assessment: PT PRESENTS TO ER A&OX4, VIA W/C, PIVOTS WITH 2 ASSIST, VERY WEAK. RESP. EVEN UNLABORED. SKIN PALE, HOT DRY. ABLE TO MOVE ALL 4 EXT. Physician History: 69-year-old female presents to our ED for evaluation of fever generalized weakness, mild left-sided flank pain and clots in her urine. Patient was initially seen at [facility]. Patient was referred to the ED for an evaluation for possible sepsis. Patient's symptoms began today. Symptoms are mild to moderate in intensity. No specific worsening or improving factors. No associated chest pain or shortness of breath. No vomiting. No diarrhea. No rash. Patient otherwise feels well. She voices no other complaints or concerns at this time. Portions of this note were created with voice recognition technology. There may be grammatical, spelling, punctuation or sound alike errors Timing/Duration: today Severity: moderate Modifying Factors: Improves With: nothing Associated Symptoms: denies symptoms Allergies/Adverse Reactions: cephalexin monohydrate [From Keflex] Allergy (Verified 07/09/21 12:34) epinephrine Adverse Reaction (Verified 12/10/21 16:44) Home Medications: Folic Acid 1 mg PO DAILY 07/27/19 [History] Leflunomide [Arava] 20 mg PO DAILY 07/27/19 [History] Levocetirizine Dihydrochloride [Xyzal] 5 mg PO DAILY 07/27/19 [History] Hx Tetanus, Diphtheria Vaccination/Date Given: No Hx Influenza Vaccination/Date Given: No Hx Pneumococcal Vaccination/Date Given: No Immunizations Up to Date: No Travel Risk - International Travel Have you traveled outside of the country in past 3 weeks: No - Emerging Infectious Disease Are you exhibiting symptoms associated with any current EIDs: Yes Symptoms: Fever, Vomitting - Review of Systems Constitutional: No Symptoms, No Fever, No Chills Eyes: No Symptoms Ears, Nose, & Throat: No Symptoms Respiratory: No Symptoms, No Cough, No Dyspnea Cardiac: No Symptoms, No Chest Pain, No Edema, No Syncope Abdominal/Gastrointestinal: No Symptoms, No Abdominal Pain, No Nausea, No Vomiting, No Diarrhea Genitourinary Symptoms: No Symptoms, No Dysuria Musculoskeletal: No Symptoms, No Back Pain, No Neck Pain Skin: No Symptoms, No Rash Neurological: No Symptoms, No Dizziness, No Focal Weakness, No Sensory Changes Psychological: No Symptoms Endocrine: No Symptoms Hematologic/Lymphatic: No Symptoms Immunological/Allergic: No Symptoms All Other Systems: Reviewed and Negative - Past Medical History Pertinent Past Medical History: Yes Neurological History: No Pertinent History ENT History: No Pertinent History Cardiac History: Hypertension Respiratory History: No Pertinent History Endocrine Medical History: No Pertinent History Musculoskeletal History: Rheumatoid Arthritis GI Medical History: No Pertinent History History: No Pertinent History Psycho-Social History: No Pertinent History Female Reproductive Disorders: No Pertinent History Other Medical History: L shoulder surgery, Covid + 11/27/2021, - Past Surgical History Past Surgical History: Yes Neuro Surgical History: No Pertinent History Cardiac: No Pertinent History Respiratory: No Pertinent History Gastrointestinal: Cholecystectomy Genitourinary: No Pertinent History Musculoskeletal: No Pertinent History Female Surgical History: Hysterectomy Other Surgical History: RT. KNEE - Social History Smoking Status: Never smoker Exposure to second hand smoke: No Drug Use: none Patient Lives Alone: No - Social Determinants of Health Will the patient participate in the screening: Yes Do you worry about a steady place to live?: No Do you have any problems with any of the following?: No known problems In the past 12 months,have you had to go without utilities?: No Transportation Issues: No Has anyone in your support network made you feel unsafe?: No Have you or anyone in your house had to go without enough: No - Nursing Vital Signs Nursing Vital Signs: Initial Vital Signs Temperature 99.2 F 09/21/24 14:19 Pulse Rate 109 H 09/21/24 14:19 Respiratory Rate 18 09/21/24 14:19 Blood Pressure 143/78 09/21/24 14:19 O2 Sat by Pulse Oximetry 96 09/21/24 14:19 Pain Scale Pain Intensity 0 - Physical Exam General Appearance: no apparent distress, alert Eye Exam: PERRL/EOMI, eyes nml inspection Ears, Nose, Throat Exam: normal ENT inspection, TMs normal, pharynx normal, moist mucous membranes Neck Exam: normal inspection, non-tender, supple, full range of motion Respiratory Exam: normal breath sounds, lungs clear, airway intact, No respiratory distress Cardiovascular Exam: regular rate/rhythm, normal heart sounds, normal peripheral pulses Gastrointestinal/Abdomen Exam: soft, normal bowel sounds, tenderness, other (Left-sided flank tenderness.), No mass Back Exam: normal inspection, normal range of motion, No CVA tenderness, No vertebral tenderness Extremity Exam: normal inspection, normal range of motion, pelvis stable Neurologic Exam: alert, oriented x 3, cooperative, normal mood/affect, sensation nml, No motor deficits Skin Exam: normal color, warm, dry, No rash Lymphatic Exam: No adenopathy SpO2 Interpretation: normal SpO2: 91 O2 Delivery: Room Air - Course Nursing assessment & vital signs reviewed: Yes - CT Exams Abdomen/Pelvis CT Interpretation: Tele-radiologist Report (Bibasilar groundglass opacities) Ordered Tests: Active Orders 24 hr Category Date Time Status Ring Spinner STAT Care 09/21/24 14:26 Active IV Insertion STAT Care 09/21/24 14:25 Active Pulse Oximetry (ED) STAT Care 09/21/24 14:25 Active ABDOMEN AND PELVIS W/0 CONTRAS [CT] Stat Exams 09/21/24 14:26 Completed BLOOD CULTURE Stat Lab 09/21/24 14:44 Received CBC W DIFF Stat Lab 09/21/24 14:25 Completed CMP Stat Lab 09/21/24 14:25 Completed CULTURE,URINE Stat Lab 09/21/24 14:29 Received Lactic Acid Stat Lab 09/21/24 14:45 Completed UA W/RFX UR CULTURE Stat Lab 09/21/24 14:29 Completed Medication Summary Generic Name Dose Route Start Last Admin Trade Name Freq PRN Reason Stop Dose Admin Sodium Chloride 1,000 mls @ 250 mls/hr 09/21/24 14:30 09/21/24 15:34 Sodium Chloride 0.9% 1000 Ml IV 10/21/24 14:29 Infused .Q4H MARGE Infusion Levofloxacin/Dextrose 500 mg in 100 mls @ 100 mls/hr 09/21/24 16:02 09/21/24 16:15 Levofloxacin 500mg/100ml D5w IV 09/21/24 17:01 100 ml/hr STAT STA 100 mls/hr Administration Discontinued Medications Generic Name Dose Route Start Last Admin Trade Name Freq PRN Reason Stop Dose Admin Acetaminophen 1,000 mg 09/21/24 16:27 09/21/24 16:30 Acetaminophen 500 Mg Tablet PO 09/21/24 16:28 1,000 mg STAT STA Administration Acetaminophen Confirm 09/21/24 16:29 Acetaminophen 500 Mg Tablet Administered 09/21/24 16:30 Dose 1,000 mg .ROUTE .STK-MED ONE Levofloxacin/Dextrose Confirm 09/21/24 16:11 Levofloxacin 500mg/100ml D5w Administered 09/21/24 16:12 Dose 500 mg in 100 mls @ ud IV .STK-MED ONE Ondansetron HCl 4 mg 09/21/24 14:30 09/21/24 14:33 Ondansetron Hcl 4 Mg/2 Ml Vial IV 09/21/24 14:31 4 mg STAT ONE Administration Ondansetron HCl Confirm 09/21/24 14:31 Ondansetron Hcl 4 Mg/2 Ml Vial Administered 09/21/24 14:32 Dose 4 mg .ROUTE .STK-MED ONE Lab/Rad Data: Laboratory Result Diagrams 09/21/24 14:25 09/21/24 14:25 Laboratory Results 09/21/24 09/21/24 09/21/24 Range/Units 14:45 14:29 14:25 WBC (3.98-10.04) x10^3/uL RBC (3.93-5.22) x10^6/uL Hgb (11.2-15.7) g/dL Hct (34.1-44.9) % MCV (79.4-94.8) fL MCH (25.6-32.2) pg MCHC (32.2-35.5) g/dL RDW (11.7-14.4) % Plt Count (182-369) x10^3/uL MPV (9.4-12.3) fL Gran % (34.0-71.1) % Immature Gran % (Auto) (0.001-0.429) % Nucleat RBC Rel Count (0.00-0.2) % Eos # (Auto) (0.04-0.36) x10^3/uL Immature Gran # (Auto) (0.001-0.031) x10^3u/L Absolute Lymphs (auto) (1.18-3.74) x10^3/uL Absolute Monos (auto) (0.24-0.86) x10^3/uL Absolute Nucleated RBC (0.00-0.012) x10^3u/L Lymphocytes % (19.3-51.7) % Monocytes % (4.7-12.5) % Eosinophils % (0.7-5.8) % Basophils % (0.1-1.2) % Absolute Granulocytes (1.56-6.13) x10^3/uL Basophils # (0.01-0.08) x10^3/uL Sodium 139 (135-145) mmol/L Potassium 3.5 (3.5-5.1) mmol/L Chloride 108 H (98-107) mmol/L Carbon Dioxide 22 (22-30) mmol/L Anion Gap 12.3 (5-15) MEQ/L BUN 11 (7-17) mg/dL Creatinine 0.61 (0.52-1.04) mg/dL Estimated GFR 97.3 ML/MIN Glucose 148 H (74-106) mg/dL Lactic Acid 1.8 (0.4-2.0) Calcium 9.3 (8.4-10.2) mg/dL Total Bilirubin 0.60 (0.2-1.3) mg/dL AST 44 H (14-36) U/L ALT 43 H (0-35) U/L Alkaline Phosphatase 110 (38-126) U/L Serum Total Protein 6.3 (6.3-8.2) g/dL Albumin 3.8 (3.5-5.0) g/dL Urine Color Gypsum A (Yellow) Urine Appearance Cloudy A (Clear) Urine pH 5.0 (4.6-8.0) Ur Specific Butler 1.015 (1.005-1.030) Urine Protein Trace A (Negative) Urine Glucose (UA) Negative (Negative) mg/dL Urine Ketones Negative (Negative) Urine Blood Moderate A (Negative) Urine Nitrite Positive A (Negative) Urine Bilirubin Small A (Negative) Urine Urobilinogen 1.0 A (0.2) mg/dL Ur Leukocyte Esterase Moderate A (Negative) U Hyaline Cast (Auto) NONE SEEN (0-2) /LPF Urine Microscopic RBC 21-50 A (0-5) /HPF Urine Microscopic WBC 21-50 A (0-5) /HPF Ur Epithelial Cells None Seen (None Seen) /HPF Urine Bacteria None Seen (None Seen) /HPF Urine Culture Reflexed YES (NO) 09/21/24 Range/Units 14:25 WBC 9.9 (3.98-10.04) x10^3/uL RBC 3.98 (3.93-5.22) x10^6/uL Hgb 11.9 (11.2-15.7) g/dL Hct 36.0 (34.1-44.9) % MCV 90.5 (79.4-94.8) fL MCH 29.9 (25.6-32.2) pg MCHC 33.1 (32.2-35.5) g/dL RDW 13.8 (11.7-14.4) % Plt Count 185 (182-369) x10^3/uL MPV 10.4 (9.4-12.3) fL Gran % 94.4 H (34.0-71.1) % Immature Gran % (Auto) 0.9 H (0.001-0.429) % Nucleat RBC Rel Count 0.0 (0.00-0.2) % Eos # (Auto) 0 L (0.04-0.36) x10^3/uL Immature Gran # (Auto) 0.09 H (0.001-0.031) x10^3u/L Absolute Lymphs (auto) 0.38 L (1.18-3.74) x10^3/uL Absolute Monos (auto) 0.07 L (0.24-0.86) x10^3/uL Absolute Nucleated RBC 0.00 (0.00-0.012) x10^3u/L Lymphocytes % 3.8 L (19.3-51.7) % Monocytes % 0.7 L (4.7-12.5) % Eosinophils % 0.0 L (0.7-5.8) % Basophils % 0.2 (0.1-1.2) % Absolute Granulocytes 9.36 H (1.56-6.13) x10^3/uL Basophils # 0.02 (0.01-0.08) x10^3/uL Sodium (135-145) mmol/L Potassium (3.5-5.1) mmol/L Chloride (98-107) mmol/L Carbon Dioxide (22-30) mmol/L Anion Gap (5-15) MEQ/L BUN (7-17) mg/dL Creatinine (0.52-1.04) mg/dL Estimated GFR ML/MIN Glucose (74-106) mg/dL Lactic Acid (0.4-2.0) Calcium (8.4-10.2) mg/dL Total Bilirubin (0.2-1.3) mg/dL AST (14-36) U/L ALT (0-35) U/L Alkaline Phosphatase (38-126) U/L Serum Total Protein (6.3-8.2) g/dL Albumin (3.5-5.0) g/dL Urine Color (Yellow) Urine Appearance (Clear) Urine pH (4.6-8.0) Ur Specific Butler (1.005-1.030) Urine Protein (Negative) Urine Glucose (UA) (Negative) mg/dL Urine Ketones (Negative) Urine Blood (Negative) Urine Nitrite (Negative) Urine Bilirubin (Negative) Urine Urobilinogen (0.2) mg/dL Ur Leukocyte Esterase (Negative) U Hyaline Cast (Auto) (0-2) /LPF Urine Microscopic RBC (0-5) /HPF Urine Microscopic WBC (0-5) /HPF Ur Epithelial Cells (None Seen) /HPF Urine Bacteria (None Seen) /HPF Urine Culture Reflexed (NO) - Progress Progress: improved Progress Note: 69-year-old female presents to our ED for evaluation of fever flank pain, generalized weakness, blood-tinged urine. Physical exam reveals some left-sided flank pain. CT scan reveals bibasilar pulmonary groundglass opacities however patient has no pulmonary complaints. Pulmonary exam is normal. UA reveals a significant urinary tract infection. Lactic acid is normal. No leukocytosis. Patient experiencing generalized weakness. Patient states she does not have much of an appetite at this time. Patient feels more comfortable staying in the hospital till she becomes stronger. Patient received a dose of Levaquin in our ED. IV fluids infused. Patient reassessed she is resting comfortably. No active pain at this time. Vital stable. Will admit for further evaluation and treatment. Case discussed with at 4:44 PM. Patient accepted for admission. at bedside. They voiced no other complaints or concerns at this time. Patient agrees to admission at [facility] for further evaluation and treatment. Portions of this note were created with voice recognition technology. There may be grammatical, spelling, punctuation or sound alike errors Complexity of problem addressed is moderate acute complicated. No critical care time. Complex of data reviewed and analyzed is extensive. Test ordered chest reviewed results analyzed and correlated clinically with history and physical exam. Case discussed with hospitalist accepts admission to observation. Risk of complication and or risk of morbidity/mortality of patient management is high. Patient requires hospitalization for further evaluation and treatment. Vital stable. Time spent to admit patient is approximately 15 minutes. Plan of care established for shared decision making. No social determinants of health present to impede follow-up. Portions of this note were created with voice recognition technology. There may be grammatical, spelling, punctuation or sound alike errors 09/21/24 16:45 Counseled pt/family regarding: lab results, diagnosis, need for follow-up, rad results - Departure Departure Disposition: Home Clinical Impression: UTI (urinary tract infection), Pyelonephritis, Fever, Flank pain, General weakness Condition: Stable Critical Care Time: No Referrals: BRYAN HODGES [Primary Care Provider] - Follow up/PCP as directed Additional Instructions: Discharge/Care Plan DEVENAYDEN MULLER was seen on 09/21/24 in the Emergency Room. The patient was counseled regarding Diagnosis,Lab results, Imaging studies, need for follow up and when to return to the Emergency Room. Prescriptions given: Discharge Note I have spoken with the patient and/or caregivers. I have explained the patient's condition, diagnosis and treatment plan based on the information available to me at this time. I have answered the patient's and/or caregiver's questions and addressed any concerns. The patient and/or caregivers have as good understanding of the patient's diagnosis, condition and treatment plan as can be expected at this point. The vital signs have been stable. The patient's condition is stable and appropriate for discharge from the emergency department. The patient will pursue further outpatient evaluation with the primary care physician or other designated or consulting physician as outlined in the discharge instructions. The patient and/or caregivers are agreeable to this plan of care and follow-up instructions have been explained in detail. The patient and/or caregivers have received these instruction. The patient/and or caregivers are aware that any significant change in condition or worsening of symptoms should prompt an immediate return to this or the closest emergency department or call 911.
[2024-09-21] MEDS ORDERED: Levofloxacin 500MG/100ML D5W 500 MG/100 ML BAG IV ONE (16:11)
[2024-09-21] MEDS: Levofloxacin 500MG/100ML D5W 500 MG/100 ML BAG IV STA (16:15)
[2024-09-21] MEDS ORDERED: TYLENOL EXTRA STRENGTH 500 MG ONE (16:29)
[2024-09-21] MEDS: TYLENOL EXTRA STRENGTH 500 MG PO STA (16:30)
--- NOTE | 2024-09-21 16:31 | XRAY ---
Indication: Pain. Hematuria. Multiple contiguous axial images obtained through the abdomen and pelvis without contrast using renal stone protocol. Comparison: March 21, 2016 Lung bases demonstrates new patchy groundglass airspace disease bilaterally. No consolidation/effusion. Heart not enlarged. No renal calculus or evidence for obstructive uropathy in either system. Noncontrasted stomach and bowel loops appear nonobstructed. Mild scattered colonic diverticulosis without diverticulitis. Again appendectomy, cholecystectomy, and hysterectomy. No free fluid/air. Remaining liver, pancreas, spleen, adrenal glands, kidneys, ureters, and bladder are unremarkable for noncontrast exam. Minimal aortoiliac calcifications without AAA. 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 Impression: 1. Continued negative renal calculus or evidence for obstructive uropathy. 2. New bibasilar patchy groundglass airspace disease. 3. Chronic findings including colonic diverticulosis, arteriosclerotic disease, and chronic bony findings. 4. Remaining CT abdomen/pelvis without contrast exam is again negative.
--- NOTE | 2024-09-21 18:01 | PCM.HP ---
History of Present Illness - Chief Complaint Chief Complaint: Pyelonephritis, fever, UTI, Date: 09/21/24 History of Present Illness: is a 69 year old female with PMHX of HTN, RA, repeat UTI's and morbid obesity. She presented to our ED today for evaluation of fever, generalized weakness, mild left-sided flank pain, and clots in her urine. Patient was initially seen at the [facility]. Patient was referred to the ED for an evaluation for possible sepsis. Patient's symptoms began today. Symptoms are mild to moderate in intensity. No specific worsening or improving factors. No associated chest pain or shortness of breath. No vomiting. No diarrhea. No rash. Patient otherwise feels well. She voices no other complaints or concerns at this time. Started on Levaquin in ER and will continue. Abd/ CT pelvis shows groudglass opacities and airspace disease bibaslar. Will order flu/ COVID/RSV testing. She is room air 92% and denies any breathing difficulties. - Review of Systems Constitutional: No Fever, No Chills Eyes: No Symptoms Ears, Nose, & Throat: No Symptoms Respiratory: No Cough, No Short Of Breath Cardiac: No Chest Pain, No Edema, No Syncope Abdominal/Gastrointestinal: No Abdominal Pain, No Nausea, No Vomiting, No Diarrhea Genitourinary Symptoms: Dysuria, Hematuria Musculoskeletal: No Back Pain, No Neck Pain Skin: No Rash Neurological: No Dizziness, No Focal Weakness, No Sensory Changes Psychological: No Symptoms Endocrine: No Symptoms Hematologic/Lymphatic: No Symptoms Immunological/Allergic: No Symptoms Medications & Allergies Home Medications: Home Medication List Folic Acid 1 mg PO DAILY 07/27/19 [History Confirmed 09/21/24] Leflunomide [Arava] 20 mg PO DAILY 07/27/19 [History Confirmed 09/21/24] Levocetirizine Dihydrochloride [Xyzal] 5 mg PO DAILY 07/27/19 [History Confirmed 09/21/24] Allergies/Adverse Reactions: Allergies Allergy/AdvReac Type Severity Reaction Status Date / Time cephalexin monohydrate Allergy Verified 07/09/21 12:34 [From Keflex] epinephrine AdvReac Verified 12/10/21 16:44 - Past Medical History Past Medical History: Yes Neurological History: No Pertinent History ENT History: No Pertinent History Cardiac History: Hypertension Respiratory History: No Pertinent History Endocrine Medical History: No Pertinent History Musculoskelatal History: Rheumatoid Arthritis GI Medical History: No Pertinent History History: No Pertinent History Pyscho-Social History: No Pertinent History Reproductive Disorders: No Pertinent History Comment: L shoulder surgery, Covid + 11/27/2021, - Past Surgical History Past Surgical History: Yes Neuro Surgical History: No Pertinent History Cardiac History: No Pertinent History Respiratory Surgery: No Pertinent History GI Surgical History: Cholecystectomy Genitourinary Surgical Hx: No Pertinent History Musculskeletal Surgical Hx: No Pertinent History Female Surgical History: Hysterectomy Other Surgical History: RT. KNEE Significant Family History: no pertinent family hx - Social History Smoking Status: Never smoker Exposure to second hand smoke: No Alcohol: None, Rarely Drug Use: none - Social Determinants of Health Will the patient participate in the screening: Yes Do you worry about a steady place to live?: No Do you have any problems with any of the following?: No known problems In the past 12 months,have you had to go without utilities?: No Have you or anyone in your house had to go without enough: No Transportation Issues: No Has anyone in your support network made you feel unsafe?: No - Physical Exam Vital Signs: Vital Signs - 24 hr Temp Pulse Resp BP BP Pulse Ox 09/21/24 17:35 99 F 89 17 121/58 92 L 09/21/24 16:52 91 L 09/21/24 16:16 101 H 19 104/63 93 L 09/21/24 16:00 101 H 6 L 108/57 94 L 09/21/24 15:45 99 H 16 128/54 91 L 09/21/24 15:30 104 H 15 131/57 91 L 09/21/24 15:27 105 H 15 135/106 91 L 09/21/24 15:26 109 H 9 L 92 L 09/21/24 15:00 107 H 27 H 91 L 09/21/24 14:50 108 H 19 95 09/21/24 14:47 110 H 22 83 L 09/21/24 14:38 109 H 22 108/55 95 09/21/24 14:31 108 H 19 109/49 99 09/21/24 14:29 98 09/21/24 14:19 99.2 F 109 H 18 143/78 96 General Appearance: no apparent distress, alert Neurologic Exam: alert, oriented x 3, cooperative, normal mood/affect, nml cerebellar function, nml station & gait, sensation nml, No motor deficits Eye Exam: PERRL/EOMI, eyes nml inspection Ears, Nose, Throat Exam: normal ENT inspection, TMs normal, pharynx normal, moist mucous membranes Neck Exam: normal inspection, non-tender, supple, full range of motion Respiratory Exam: normal breath sounds, lungs clear, No respiratory distress Cardiovascular Exam: regular rate/rhythm, normal heart sounds, normal peripheral pulses Gastrointestinal/Abdomen Exam: soft, normal bowel sounds, No tenderness, No mass Back Exam: normal inspection, normal range of motion, No CVA tenderness, No vertebral tenderness Extremity Exam: normal inspection, normal range of motion, pelvis stable Skin Exam: normal color, warm, dry, No rash Lymphatic Exam: No adenopathy Results - Labs Lab/Micro Results: Lab Results-Last 24 Hours 09/21/24 09/21/24 09/21/24 Range/Units 14:25 14:25 14:29 WBC 9.9 (3.98-10.04) x10^3/uL RBC 3.98 (3.93-5.22) x10^6/uL Hgb 11.9 (11.2-15.7) g/dL Hct 36.0 (34.1-44.9) % MCV 90.5 (79.4-94.8) fL MCH 29.9 (25.6-32.2) pg MCHC 33.1 (32.2-35.5) g/dL RDW 13.8 (11.7-14.4) % Plt Count 185 (182-369) x10^3/uL MPV 10.4 (9.4-12.3) fL Gran % 94.4 H (34.0-71.1) % Immature Gran % (Auto) 0.9 H (0.001-0.429) % Nucleat RBC Rel Count 0.0 (0.00-0.2) % Eos # (Auto) 0 L (0.04-0.36) x10^3/uL Immature Gran # (Auto) 0.09 H (0.001-0.031) x10^3u/L Absolute Lymphs (auto) 0.38 L (1.18-3.74) x10^3/uL Absolute Monos (auto) 0.07 L (0.24-0.86) x10^3/uL Absolute Nucleated RBC 0.00 (0.00-0.012) x10^3u/L Lymphocytes % 3.8 L (19.3-51.7) % Monocytes % 0.7 L (4.7-12.5) % Eosinophils % 0.0 L (0.7-5.8) % Basophils % 0.2 (0.1-1.2) % Absolute Granulocytes 9.36 H (1.56-6.13) x10^3/uL Basophils # 0.02 (0.01-0.08) x10^3/uL Sodium 139 (135-145) mmol/L Potassium 3.5 (3.5-5.1) mmol/L Chloride 108 H (98-107) mmol/L Carbon Dioxide 22 (22-30) mmol/L Anion Gap 12.3 (5-15) MEQ/L BUN 11 (7-17) mg/dL Creatinine 0.61 (0.52-1.04) mg/dL Estimated GFR 97.3 ML/MIN Glucose 148 H (74-106) mg/dL Lactic Acid (0.4-2.0) Calcium 9.3 (8.4-10.2) mg/dL Total Bilirubin 0.60 (0.2-1.3) mg/dL AST 44 H (14-36) U/L ALT 43 H (0-35) U/L Alkaline Phosphatase 110 (38-126) U/L Serum Total Protein 6.3 (6.3-8.2) g/dL Albumin 3.8 (3.5-5.0) g/dL Urine Color [place] A (Yellow) Urine Appearance Cloudy A (Clear) Urine pH 5.0 (4.6-8.0) Ur Specific [place] 1.015 (1.005-1.030) Urine Protein Trace A (Negative) Urine Glucose (UA) Negative (Negative) mg/dL Urine Ketones Negative (Negative) Urine Blood Moderate A (Negative) Urine Nitrite Positive A (Negative) Urine Bilirubin Small A (Negative) Urine Urobilinogen 1.0 A (0.2) mg/dL Ur Leukocyte Esterase Moderate A (Negative) U Hyaline Cast (Auto) NONE SEEN (0-2) /LPF Urine Microscopic RBC 21-50 A (0-5) /HPF Urine Microscopic WBC 21-50 A (0-5) /HPF Ur Epithelial Cells None Seen (None Seen) /HPF Urine Bacteria None Seen (None Seen) /HPF Urine Culture Reflexed YES (NO) 09/21/24 Range/Units 14:45 WBC (3.98-10.04) x10^3/uL RBC (3.93-5.22) x10^6/uL Hgb (11.2-15.7) g/dL Hct (34.1-44.9) % MCV (79.4-94.8) fL MCH (25.6-32.2) pg MCHC (32.2-35.5) g/dL RDW (11.7-14.4) % Plt Count (182-369) x10^3/uL MPV (9.4-12.3) fL Gran % (34.0-71.1) % Immature Gran % (Auto) (0.001-0.429) % Nucleat RBC Rel Count (0.00-0.2) % Eos # (Auto) (0.04-0.36) x10^3/uL Immature Gran # (Auto) (0.001-0.031) x10^3u/L Absolute Lymphs (auto) (1.18-3.74) x10^3/uL Absolute Monos (auto) (0.24-0.86) x10^3/uL Absolute Nucleated RBC (0.00-0.012) x10^3u/L Lymphocytes % (19.3-51.7) % Monocytes % (4.7-12.5) % Eosinophils % (0.7-5.8) % Basophils % (0.1-1.2) % Absolute Granulocytes (1.56-6.13) x10^3/uL Basophils # (0.01-0.08) x10^3/uL Sodium (135-145) mmol/L Potassium (3.5-5.1) mmol/L Chloride (98-107) mmol/L Carbon Dioxide (22-30) mmol/L Anion Gap (5-15) MEQ/L BUN (7-17) mg/dL Creatinine (0.52-1.04) mg/dL Estimated GFR ML/MIN Glucose (74-106) mg/dL Lactic Acid 1.8 (0.4-2.0) Calcium (8.4-10.2) mg/dL Total Bilirubin (0.2-1.3) mg/dL AST (14-36) U/L ALT (0-35) U/L Alkaline Phosphatase (38-126) U/L Serum Total Protein (6.3-8.2) g/dL Albumin (3.5-5.0) g/dL Urine Color (Yellow) Urine Appearance (Clear) Urine pH (4.6-8.0) Ur Specific [place] (1.005-1.030) Urine Protein (Negative) Urine Glucose (UA) (Negative) mg/dL Urine Ketones (Negative) Urine Blood (Negative) Urine Nitrite (Negative) Urine Bilirubin (Negative) Urine Urobilinogen (0.2) mg/dL Ur Leukocyte Esterase (Negative) U Hyaline Cast (Auto) (0-2) /LPF Urine Microscopic RBC (0-5) /HPF Urine Microscopic WBC (0-5) /HPF Ur Epithelial Cells (None Seen) /HPF Urine Bacteria (None Seen) /HPF Urine Culture Reflexed (NO) - Radiology Impressions Radiology Exams & Impressions: Radiology Procedures Category Date Time Status ABDOMEN AND PELVIS W/0 CONTRAS [CT] Stat Exams 09/21/24 14:26 Completed Assessment/Plan (1) Complicated UTI (urinary tract infection) Current Visit: Yes Status: Acute Assessment & Plan: - UA reviewed - Levaquin started in ER continue - Iv fluids in ER - CBC, CMP reviewed - Will need OP f/u with urology at d/c for repeat UTI's - UC and BC x2 pending - Zofran for nausea - Tele Code(s): N39.0 - URINARY TRACT INFECTION, SITE NOT SPECIFIED (2) Ground glass opacity present on imaging of lung Current Visit: Yes Status: Acute Assessment & Plan: - as seen on abd CT - Procal pending - Flu/COVID/RSV pending - IV antibiotic - RA 92% Code(s): R91.8 - OTHER NONSPECIFIC ABNORMAL FINDING OF LUNG FIELD (3) HTN (hypertension) Current Visit: Yes Status: Chronic Assessment & Plan: - not any any current meds - BP controlled Code(s): I10 - ESSENTIAL (PRIMARY) HYPERTENSION (4) Obesity (BMI 30-39.9) Current Visit: Yes Status: Chronic Assessment & Plan: - advised diet and exercise control Code(s): E66.9 - OBESITY, UNSPECIFIED (5) Rheumatoid arthritis Current Visit: Yes Status: Chronic Assessment & Plan: - continue home meds VTE: Lovenox Next of KIN: Ilene Taylor spouse- [phone] D/C plan: 1-2 days Code status: Full Code(s): M06.9 - RHEUMATOID ARTHRITIS, UNSPECIFIED Telemedicine Encounter - Telemedicine Encounter Telemedicine Encounter: "The entirety of this encounter was performed via Telemedicine" This visit was performed using real-time audio and video connection between my location and thepatients locationwith the assistance of a surrogateat the patients location. Written or verbal consent was obtained from the patient/guardian to perform this visit usingsynchronoustelemedicine technology. Any patient questions regarding the telemedicine interaction were answered.
[2024-09-21] MEDS ORDERED: Compazine 10 MG/2 ML IM PRN (18:12)
[2024-09-21] MEDS ORDERED: TYLENOL 325 MG PO PRN (18:12)
[2024-09-22 05:22] LABS: Hematocrit 32.4 % (34.1-44.9); Hemoglobin 10.7 g/dL (11.2-15.7); Mean Cell Volume 90.5 fL (79.4-94.8); Mean Corpuscular Hemoglobin 29.9 pg (25.6-32.2); Mean Platelet Volume 10.8 fL (9.4-12.3); Platelet Count 173 x10^3/uL (182-369); Red Blood Count 3.58 x10^6/uL (3.93-5.22); Red Cell Distribution Width 14.3 % (11.7-14.4); White Blood Count 10.9 x10^3/uL (3.98-10.04)
[2024-09-22 06:42] LABS: ALBUMIN 3.4 g/dL (3.5-5.0); ANION GAP 10.7 MEQ/L (5-15); BILIRUBIN,TOTAL 0.7 mg/dL (0.2-1.3); Calcium 8.5 mg/dL (8.4-10.2); Creatinine 1 0.6 mg/dL (0.52-1.04); EST GLOMERULAR FILTRATION RATE 97.7 ML/MIN; Potassium 3.4 mmol/L (3.5-5.1)
[2024-09-22] MEDS ORDERED: MEDICATION INTERVENTION MC SCH (08:00)
[2024-09-22] MEDS: Klor Con PO SCH (08:24)
[2024-09-22] MEDS: FOLATE 1 MG PO SCH (09:39)
[2024-09-22] MEDS: CLARITIN 10 MG PO SCH (09:39)
[2024-09-22] MEDS: ENOXAPARIN SODIUM SQ SCH (09:42)
[2024-09-22] MEDS ORDERED: LEVOFLOXACIN 750MG/150ML D5W 750 MG/150 ML BAG IV SCH (10:00)
[2024-09-22] MEDS ORDERED: LEFLUNOMIDE 10 MG PO SCH (10:00)
[2024-09-22] MEDS ORDERED: NON-FORMULARY ITEM (Levocetirizine Dihydrochloride [Xyzal] 5 MG Tablet) PO SCH (10:00)
[2024-09-22 10:31] LABS: INFLUENZA A NEGATIVE (NEGATIVE); INFLUENZA B NEGATIVE (NEGATIVE); RESPIRATORY SYNCTIAL VIRUS NEGATIVE (NEGATIVE); SARS-CoV-2 Xpert Express NEGATIVE (NEGATIVE)
--- NOTE | 2024-09-22 11:18 | PCM.NOTE ---
Date and Time: 09/22/24 1112 Subjective Assessment: 09/21/24 is a 69 year old female with PMHX of HTN, RA, repeat UTI's and morbid obesity. She presented to our ED today for evaluation of fever, generalized weakness, mild left-sided flank pain, and clots in her urine. Patient was initially seen at [facility]. Patient was referred to the ED for an evaluation for possible sepsis. Patient's symptoms began today. Symptoms are mild to moderate in intensity. No specific worsening or improving factors. No associated chest pain or shortness of breath. No vomiting. No diarrhea. No rash. Patient otherwise feels well. She voices no other complaints or concerns at this time. Started on Levaquin in ER and will continue. Abd/ CT pelvis shows ground glass opacities and airspace disease bibaslar. Will order flu/ COVID/RSV testing. She is room air 92% and denies any breathing difficulties. 09/22/24 Pt resting in bed. She no longer reports dysuria or hematuria. She has continued weakness and will have PT eval. Flu/COVID/RSV negative. She is not requiring oxygen and O2 is 91% RA. K+ 3.4 and replaced. Liver enzymes elevated. WBC 10.9. BC x2 pending. Will continue Levaquin for possible pneumonia. She denies CP, SOB, abd. pain, N/V/D. - Review of Systems Constitutional: Weakness, No Fever, No Chills Eyes: No Symptoms Ears, Nose, & Throat: No Symptoms Respiratory: No Cough, No Short Of Breath Cardiac: No Chest Pain, No Edema, No Syncope Abdominal/Gastrointestinal: No Abdominal Pain, No Nausea, No Vomiting, No Diarrhea Genitourinary Symptoms: No Dysuria Musculoskeletal: No Back Pain, No Neck Pain Skin: No Rash Neurological: No Dizziness, No Focal Weakness, No Sensory Changes Psychological: No Symptoms Endocrine: No Symptoms Hematologic/Lymphatic: No Symptoms Immunological/Allergic: No Symptoms Objective Exam General Appearance: no apparent distress, alert Neurologic Exam: alert, oriented x 3, cooperative, normal mood/affect, nml cerebellar function, sensation nml, motor weakness, No motor deficits Skin Exam: normal color, warm, dry Eye Exam: PERRL, EOMI, eyes nml inspection Ears, Nose, Throat Exam: normal ENT inspection, pharynx normal, moist mucous membranes Neck Exam: normal inspection, non-tender, supple, full range of motion Respiratory Exam: normal breath sounds, lungs clear, No respiratory distress Cardiovascular Exam: regular rate/rhythm, normal heart sounds Gastrointestinal/Abdomen Exam: soft, No tenderness, No mass Extremity Exam: normal inspection, normal range of motion Back Exam: normal inspection, normal range of motion, No CVA tenderness, No vertebral tenderness Pelvic Exam: deferred Rectal Exam: deferred Objective Data Vital Signs: Vital Signs - 24 hr Temp Pulse Resp BP BP Pulse Ox 09/22/24 07:45 97.4 F 86 16 142/65 91 L 09/22/24 02:37 97.5 F 82 18 114/55 90 L 09/21/24 23:45 97.5 F 86 20 153/67 94 L 09/21/24 20:00 98.7 F 76 20 115/56 92 L 09/21/24 17:37 99.0 F 89 18 121/58 92 L 09/21/24 17:35 99 F 82 17 121/58 92 L 09/21/24 16:52 91 L 09/21/24 16:16 101 H 19 104/63 93 L 09/21/24 16:00 101 H 6 L 108/57 94 L 09/21/24 15:45 99 H 16 128/54 91 L 09/21/24 15:30 104 H 15 131/57 91 L 09/21/24 15:27 105 H 15 135/106 91 L 09/21/24 15:26 109 H 9 L 92 L 09/21/24 15:00 107 H 27 H 91 L 09/21/24 14:50 108 H 19 95 09/21/24 14:47 110 H 22 83 L 09/21/24 14:38 109 H 22 108/55 95 09/21/24 14:31 108 H 19 109/49 99 09/21/24 14:29 98 09/21/24 14:19 99.2 F 109 H 18 143/78 96 Pain Assessment - Last Documented Pain Intensity 0 Intake and Output: Intake & Output 09/19/24 09/20/24 09/21/24 09/22/24 11:59 11:59 11:59 11:59 Intake Total 480 Balance 480 Weight 93.5 kg Lab Results: Lab Results-Last 24 Hours 09/21/24 09/21/2424 Range/Units 14:25 14:25 14:25 WBC 9.9 (3.98-10.04) x10^3/uL RBC 3.98 (3.93-5.22) x10^6/uL Hgb 11.9 (11.2-15.7) g/dL Hct 36.0 (34.1-44.9) % MCV 90.5 (79.4-94.8) fL MCH 29.9 (25.6-32.2) pg MCHC 33.1 (32.2-35.5) g/dL RDW 13.8 (11.7-14.4) % Plt Count 185 (182-369) x10^3/uL MPV 10.4 (9.4-12.3) fL Gran % 94.4 H (34.0-71.1) % Immature Gran % (Auto) 0.9 H (0.001-0.429) % Nucleat RBC Rel Count 0.0 (0.00-0.2) % Eos # (Auto) 0 L (0.04-0.36) x10^3/uL Immature Gran # (Auto) 0.09 H (0.001-0.031) x10^3u/L Absolute Lymphs (auto) 0.38 L (1.18-3.74) x10^3/uL Absolute Monos (auto) 0.07 L (0.24-0.86) x10^3/uL Absolute Nucleated RBC 0.00 (0.00-0.012) x10^3u/L Lymphocytes % 3.8 L (19.3-51.7) % Monocytes % 0.7 L (4.7-12.5) % Eosinophils % 0.0 L (0.7-5.8) % Basophils % 0.2 (0.1-1.2) % Absolute Granulocytes 9.36 H (1.56-6.13) x10^3/uL Basophils # 0.02 (0.01-0.08) x10^3/uL Sodium 139 (135-145) mmol/L Potassium 3.5 (3.5-5.1) mmol/L Chloride 108 H (98-107) mmol/L Carbon Dioxide 22 (22-30) mmol/L Anion Gap 12.3 (5-15) MEQ/L BUN 11 (7-17) mg/dL Creatinine 0.61 (0.52-1.04) mg/dL Estimated GFR 97.3 ML/MIN Glucose 148 H (74-106) mg/dL Lactic Acid (0.4-2.0) Calcium 9.3 (8.4-10.2) mg/dL Total Bilirubin 0.60 (0.2-1.3) mg/dL AST 44 H (14-36) U/L ALT 43 H (0-35) U/L Alkaline Phosphatase 110 (38-126) U/L Serum Total Protein 6.3 (6.3-8.2) g/dL Albumin 3.8 (3.5-5.0) g/dL Procalcitonin 0.370 H (0.030-0.080) ng/mL Urine Color (Yellow) Urine Appearance (Clear) Urine pH (4.6-8.0) Ur Specific [place] (1.005-1.030) Urine Protein (Negative) Urine Glucose (UA) (Negative) mg/dL Urine Ketones (Negative) Urine Blood (Negative) Urine Nitrite (Negative) Urine Bilirubin (Negative) Urine Urobilinogen (0.2) mg/dL Ur Leukocyte Esterase (Negative) U Hyaline Cast (Auto) (0-2) /LPF Urine Microscopic RBC (0-5) /HPF Urine Microscopic WBC (0-5) /HPF Ur Epithelial Cells (None Seen) /HPF Urine Bacteria (None Seen) /HPF Urine Culture Reflexed (NO) Influenza Type A Ag (NEGATIVE) Influenza Type B Ag (NEGATIVE) RSV (PCR) (NEGATIVE) SARS-CoV-2 (PCR) (NEGATIVE) 09/21/24 09/21/24 09/22/24 Range/Units 14:29 14:45 04:45 WBC 10.9 H (3.98-10.04) x10^3/uL RBC 3.58 L (3.93-5.22) x10^6/uL Hgb 10.7 L (11.2-15.7) g/dL Hct 32.4 L (34.1-44.9) % MCV 90.5 (79.4-94.8) fL MCH 29.9 (25.6-32.2) pg MCHC 33.0 (32.2-35.5) g/dL RDW 14.3 (11.7-14.4) % Plt Count 173 L (182-369) x10^3/uL MPV 10.8 (9.4-12.3) fL Gran % (34.0-71.1) % Immature Gran % (Auto) (0.001-0.429) % Nucleat RBC Rel Count (0.00-0.2) % Eos # (Auto) (0.04-0.36) x10^3/uL Immature Gran # (Auto) (0.001-0.031) x10^3u/L Absolute Lymphs (auto) (1.18-3.74) x10^3/uL Absolute Monos (auto) (0.24-0.86) x10^3/uL Absolute Nucleated RBC (0.00-0.012) x10^3u/L Lymphocytes % (19.3-51.7) % Monocytes % (4.7-12.5) % Eosinophils % (0.7-5.8) % Basophils % (0.1-1.2) % Absolute Granulocytes (1.56-6.13) x10^3/uL Basophils # (0.01-0.08) x10^3/uL Sodium (135-145) mmol/L Potassium (3.5-5.1) mmol/L Chloride (98-107) mmol/L Carbon Dioxide (22-30) mmol/L Anion Gap (5-15) MEQ/L BUN (7-17) mg/dL Creatinine (0.52-1.04) mg/dL Estimated GFR ML/MIN Glucose (74-106) mg/dL Lactic Acid 1.8 (0.4-2.0) Calcium (8.4-10.2) mg/dL Total Bilirubin (0.2-1.3) mg/dL AST (14-36) U/L ALT (0-35) U/L Alkaline Phosphatase (38-126) U/L Serum Total Protein (6.3-8.2) g/dL Albumin (3.5-5.0) g/dL Procalcitonin (0.030-0.080) ng/mL Urine Color [place] A (Yellow) Urine Appearance Cloudy A (Clear) Urine pH 5.0 (4.6-8.0) Ur Specific [place] 1.015 (1.005-1.030) Urine Protein Trace A (Negative) Urine Glucose (UA) Negative (Negative) mg/dL Urine Ketones Negative (Negative) Urine Blood Moderate A (Negative) Urine Nitrite Positive A (Negative) Urine Bilirubin Small A (Negative) Urine Urobilinogen 1.0 A (0.2) mg/dL Ur Leukocyte Esterase Moderate A (Negative) U Hyaline Cast (Auto) NONE SEEN (0-2) /LPF Urine Microscopic RBC 21-50 A (0-5) /HPF Urine Microscopic WBC 21-50 A (0-5) /HPF Ur Epithelial Cells None Seen (None Seen) /HPF Urine Bacteria None Seen (None Seen) /HPF Urine Culture Reflexed YES (NO) Influenza Type A Ag (NEGATIVE) Influenza Type B Ag (NEGATIVE) RSV (PCR) (NEGATIVE) SARS-CoV-2 (PCR) (NEGATIVE) 09/22/24 09/22/24 Range/Units 04:45 09:44 WBC (3.98-10.04) x10^3/uL RBC (3.93-5.22) x10^6/uL Hgb (11.2-15.7) g/dL Hct (34.1-44.9) % MCV (79.4-94.8) fL MCH (25.6-32.2) pg MCHC (32.2-35.5) g/dL RDW (11.7-14.4) % Plt Count (182-369) x10^3/uL MPV (9.4-12.3) fL Gran % (34.0-71.1) % Immature Gran % (Auto) (0.001-0.429) % Nucleat RBC Rel Count (0.00-0.2) % Eos # (Auto) (0.04-0.36) x10^3/uL Immature Gran # (Auto) (0.001-0.031) x10^3u/L Absolute Lymphs (auto) (1.18-3.74) x10^3/uL Absolute Monos (auto) (0.24-0.86) x10^3/uL Absolute Nucleated RBC (0.00-0.012) x10^3u/L Lymphocytes % (19.3-51.7) % Monocytes % (4.7-12.5) % Eosinophils % (0.7-5.8) % Basophils % (0.1-1.2) % Absolute Granulocytes (1.56-6.13) x10^3/uL Basophils # (0.01-0.08) x10^3/uL Sodium 138 (135-145) mmol/L Potassium 3.4 L (3.5-5.1) mmol/L Chloride 109 H (98-107) mmol/L Carbon Dioxide 22 (22-30) mmol/L Anion Gap 10.7 (5-15) MEQ/L BUN 8 (7-17) mg/dL Creatinine 0.60 (0.52-1.04) mg/dL Estimated GFR 97.7 ML/MIN Glucose 101 (74-106) mg/dL Lactic Acid (0.4-2.0) Calcium 8.5 (8.4-10.2) mg/dL Total Bilirubin 0.70 (0.2-1.3) mg/dL AST 218 H (14-36) U/L ALT 169 H (0-35) U/L Alkaline Phosphatase 81 (38-126) U/L Serum Total Protein 6.0 L (6.3-8.2) g/dL Albumin 3.4 L (3.5-5.0) g/dL Procalcitonin (0.030-0.080) ng/mL Urine Color (Yellow) Urine Appearance (Clear) Urine pH (4.6-8.0) Ur Specific [place] (1.005-1.030) Urine Protein (Negative) Urine Glucose (UA) (Negative) mg/dL Urine Ketones (Negative) Urine Blood (Negative) Urine Nitrite (Negative) Urine Bilirubin (Negative) Urine Urobilinogen (0.2) mg/dL Ur Leukocyte Esterase (Negative) U Hyaline Cast (Auto) (0-2) /LPF Urine Microscopic RBC (0-5) /HPF Urine Microscopic WBC (0-5) /HPF Ur Epithelial Cells (None Seen) /HPF Urine Bacteria (None Seen) /HPF Urine Culture Reflexed (NO) Influenza Type A Ag NEGATIVE (NEGATIVE) Influenza Type B Ag NEGATIVE (NEGATIVE) RSV (PCR) NEGATIVE (NEGATIVE) SARS-CoV-2 (PCR) NEGATIVE (NEGATIVE) Radiology Exams: Radiology Procedures Category Date Time Status ABDOMEN AND PELVIS W/0 CONTRAS [CT] Stat Exams 09/21/24 14:26 Completed Assessment/Plan (1) Complicated UTI (urinary tract infection) Current Visit: Yes Status: Acute Code(s): N39.0 - URINARY TRACT INFECTION, SITE NOT SPECIFIED (2) Ground glass opacity present on imaging of lung Current Visit: Yes Status: Acute Code(s): R91.8 - OTHER NONSPECIFIC ABNORMAL FINDING OF LUNG FIELD (3) HTN (hypertension) Current Visit: Yes Status: Chronic Code(s): I10 - ESSENTIAL (PRIMARY) HYPERTENSION (4) Obesity (BMI 30-39.9) Current Visit: Yes Status: Chronic Code(s): E66.9 - OBESITY, UNSPECIFIED (5) Rheumatoid arthritis Current Visit: Yes Status: Chronic Assessment & Plan: (1) Complicated UTI (urinary tract infection) Current Visit: Yes Status: Acute Assessment & Plan: - UA reviewed - Levaquin started in ER continue - Iv fluids in ER - CBC, CMP reviewed - Will need OP f/u with urology at d/c for repeat UTI's - UC and BC x2 pending - Zofran for nausea - Tele 09/22 - UC negative - BC x2 pending - CBC, CMP reviewed Code(s): N39.0 - URINARY TRACT INFECTION, SITE NOT SPECIFIED (2) Ground glass opacity present on imaging of lung Current Visit: Yes Status: Acute Assessment & Plan: - as seen on abd. CT - Procal 0.370 - Flu/COVID/RSV negative - IV antibiotic - RA 92% 09/22 - Continue Levaquin - RA 91% Code(s): R91.8 - OTHER NONSPECIFIC ABNORMAL FINDING OF LUNG FIELD (3) HTN (hypertension) Current Visit: Yes Status: Chronic Assessment & Plan: - not any any current meds - BP controlled Code(s): I10 - ESSENTIAL (PRIMARY) HYPERTENSION (4) Obesity (BMI 30-39.9) Current Visit: Yes Status: Chronic Assessment & Plan: - advised diet and exercise control Code(s): E66.9 - OBESITY, UNSPECIFIED (5) Rheumatoid arthritis Current Visit: Yes Status: Chronic Assessment & Plan: - continue home meds Code(s): M06.9 - RHEUMATOID ARTHRITIS, UNSPECIFIED Code(s): M06.9 - RHEUMATOID ARTHRITIS, UNSPECIFIED (6) Abnormal liver enzymes Current Visit: Yes Status: Acute Assessment & Plan: - AST 218, ALT 169- trend Code(s): R74.8 - ABNORMAL LEVELS OF OTHER SERUM ENZYMES (7) Weakness Current Visit: Yes Status: Acute Assessment & Plan: - PT eval and treat VTE: Lovenox Next of KIN: Ilene Taylor spouse- [phone] D/C plan: 1-2 days Code status: Full Code(s): R53.1 - WEAKNESS
[2024-09-22] MEDS: Levofloxacin 500MG/100ML D5W 500 MG/100 ML BAG IV SCH (11:47)
[2024-09-22] MEDS: Levofloxacin 250MG Tablet PO ONE (12:12)
[2024-09-23 05:27] LABS: Hematocrit 33.2 % (34.1-44.9); Hemoglobin 10.8 g/dL (11.2-15.7); Mean Cell Volume 91.2 fL (79.4-94.8); Mean Corpuscular Hemoglobin 29.7 pg (25.6-32.2); Mean Corpuscular Hgb Concent. 32.5 g/dL (32.2-35.5); Mean Platelet Volume 10.8 fL (9.4-12.3); Platelet Count 179 x10^3/uL (182-369); Red Blood Count 3.64 x10^6/uL (3.93-5.22); Red Cell Distribution Width 14.4 % (11.7-14.4); White Blood Count 7.3 x10^3/uL (3.98-10.04)
[2024-09-23 05:46] LABS: ALBUMIN 3.5 g/dL (3.5-5.0); ANION GAP 11.6 MEQ/L (5-15); BILIRUBIN,TOTAL 0.4 mg/dL (0.2-1.3); Calcium 8.7 mg/dL (8.4-10.2); Creatinine 1 0.62 mg/dL (0.52-1.04); EST GLOMERULAR FILTRATION RATE 96.9 ML/MIN; MAGNESIUM 2.2 mg/dL (1.6-2.3); Potassium 3.8 mmol/L (3.5-5.1); Total Protein 6.2 g/dL (6.3-8.2)
[2024-09-23 08:07] VITALS: RESP 16
[2024-09-23] MEDS: Levofloxacin 500 MG Tablet PO SCH (09:31)
[2024-09-23] MEDS: Levofloxacin 250MG Tablet PO SCH (09:31)
[2024-09-23 11:16] VITALS: BP 141/74
[2024-09-23 11:31] VITALS: PULSE 70; TEMP 97.7; O2SAT 91
--- NOTE | 2024-09-23 13:38 | PCM.DS ---
Discharge Summary Date of Admission: 09/21/24 17:15 Date of Discharge: 09/23/24 Admitting Physician: CRIS HORNE MD Primary Care Provider: BRYAN HODGES Allergies Allergies cephalexin monohydrate [From Keflex] Allergy (Verified 07/09/21 12:34) epinephrine Adverse Reaction (Verified 12/10/21 16:44) Hospital Summary - Hospital Course Hospital Course: 09/21/24 is a 69 year old female with PMHX of HTN, RA, repeat UTI's and morbid obesity. She presented to our ED today for evaluation of fever, generalized weakness, mild left-sided flank pain, and clots in her urine. Patient was initially seen at [facility]. Patient was referred to the ED for an evaluation for possible sepsis. Patient's symptoms began today. Symptoms are mild to moderate in intensity. No specific worsening or improving factors. No associated chest pain or shortness of breath. No vomiting. No diarrhea. No rash. Patient otherwise feels well. She voices no other complaints or concerns at this time. Started on Levaquin in ER and will continue. Abd/ CT pelvis shows ground glass opacities and airspace disease bibaslar. Will order flu/ COVID/RSV testing. She is room air 92% and denies any breathing difficulties. 09/22/24 Pt resting in bed. She no longer reports dysuria or hematuria. She has continued weakness and will have PT eval. Flu/COVID/RSV negative. She is not requiring oxygen and O2 is 91% RA. K+ 3.4 and replaced. Liver enzymes elevated. WBC 10.9. BC x2 pending. Will continue Levaquin for possible pneumonia. She denies CP, SOB, abd. pain, N/V/D. 09/23/24 Pt resting in bed. She states she is feeling better and would like to d/c She is no longer having weakness and was able to walk with staff in the [place]. Discussed lab and radiology results again today. Will d/c with oral antibiotics for abnormalities seen on CT of lungs. She denies any further dysuria or heamtuira. Discussed she may have passed a kidney stone [employer] as it did not show on CT and there was no hydronephrosis. UC and BC x2 negative. BP this AM eleavted but repeat BP at noon ok. Pt to f/u with PCP OP. She denies any further concerns at this time. - Vitals & Intake/Output Vital Signs: Vital Signs Temperature 97.7 F 09/23/24 11:31 Pulse Rate 70 09/23/24 11:31 Respiratory Rate 16 09/23/24 11:31 Blood Pressure 141/74 09/23/24 11:31 O2 Sat by Pulse Oximetry 91 L 09/23/24 11:31 Intake & Output: Intake & Output 09/21/24 09/22/24 09/23/24 09/24/24 11:59 11:59 11:59 11:59 Intake Total 480 1979 Balance 480 1979 Weight 93.5 kg - Lab Result Diagrams: 09/23/24 04:52 09/23/24 04:52 Lab Results-Last 24 Hrs: Lab Results-Last 24 Hours 09/22/24 09/23/24 09/23/24 Range/Units 16:35 04:52 04:52 WBC 7.3 (3.98-10.04) x10^3/uL RBC 3.64 L (3.93-5.22) x10^6/uL Hgb 10.8 L (11.2-15.7) g/dL Hct 33.2 L (34.1-44.9) % MCV 91.2 (79.4-94.8) fL MCH 29.7 (25.6-32.2) pg MCHC 32.5 (32.2-35.5) g/dL RDW 14.4 (11.7-14.4) % Plt Count 179 L (182-369) x10^3/uL MPV 10.8 (9.4-12.3) fL Sodium 140 (135-145) mmol/L Potassium 3.9 3.8 (3.5-5.1) mmol/L Chloride 112 H (98-107) mmol/L Carbon Dioxide 21 L (22-30) mmol/L Anion Gap 11.6 (5-15) MEQ/L BUN 11 (7-17) mg/dL Creatinine 0.62 (0.52-1.04) mg/dL Estimated GFR 96.9 ML/MIN Glucose 103 (74-106) mg/dL Calcium 8.7 (8.4-10.2) mg/dL Magnesium 2.2 (1.6-2.3) mg/dL Total Bilirubin 0.40 (0.2-1.3) mg/dL AST 77 H (14-36) U/L ALT 117 H (0-35) U/L Alkaline Phosphatase 84 (38-126) U/L Serum Total Protein 6.2 L (6.3-8.2) g/dL Albumin 3.5 (3.5-5.0) g/dL Micro Results-Entire Visit: Microbiology 09/21/24 14:29 Urine Culture - Final Clean Catch Midstream MIXED LIBRA; 3 OR MORE TYPES. NO PREDOMINANT ORGANISM. NO FURTHER WORKUP. PLEASE RESUBMIT IF CLINICALLY INDICATED. 09/21/24 14:44 Blood Culture - Preliminary Blood 09/21/24 14:25 Blood Culture - Preliminary Blood - Radiology Exams Ordered Rad Exams-Entire Visit: Radiology Procedures Category Date Time Status ABDOMEN AND PELVIS W/0 CONTRAS [CT] Stat Exams 09/21/24 14:26 Completed - Procedures and Test Procedures and Tests throughout Hospitalization: Therapy Orders & Screens 09/22/24 09:41 PT Eval & Treat ( Order) ONCE Reason for Eval:: weakness Diagnosis: Pyelonephritis, fever, UTI, Discharge Exam General Appearance: no apparent distress, alert, obese Neurologic Exam: alert, oriented x 3, cooperative, normal mood/affect, nml cerebellar function, sensation nml, No motor deficits Eye Exam: PERRL, EOMI, eyes nml inspection Ears, Nose, Throat Exam: normal ENT inspection, pharynx normal, moist mucous membranes Neck Exam: normal inspection, non-tender, supple, full range of motion Respiratory Exam: normal breath sounds, lungs clear, No respiratory distress Cardiovascular Exam: regular rate/rhythm, normal heart sounds Gastrointestinal/Abdomen Exam: soft, No tenderness, No mass Pelvic Exam: deferred Rectal Exam: deferred Back Exam: normal inspection, normal range of motion, No CVA tenderness, No vertebral tenderness Extremity Exam: normal inspection, normal range of motion Skin Exam: normal color, warm, dry Final Diagnosis/Problem List - Final Discharge Diagnosis/Problem (1) Complicated UTI (urinary tract infection) Current Visit: Yes Status: Acute Code(s): N39.0 - URINARY TRACT INFECTION, SITE NOT SPECIFIED (2) Ground glass opacity present on imaging of lung Current Visit: Yes Status: Acute Code(s): R91.8 - OTHER NONSPECIFIC ABNORMAL FINDING OF LUNG FIELD (3) HTN (hypertension) Current Visit: Yes Status: Chronic Code(s): I10 - ESSENTIAL (PRIMARY) HYPERTENSION (4) Obesity (BMI 30-39.9) Current Visit: Yes Status: Chronic Code(s): E66.9 - OBESITY, UNSPECIFIED (5) Rheumatoid arthritis Current Visit: Yes Status: Chronic Code(s): M06.9 - RHEUMATOID ARTHRITIS, UNSPECIFIED (6) Abnormal liver enzymes Current Visit: Yes Status: Acute Code(s): R74.8 - ABNORMAL LEVELS OF OTHER SERUM ENZYMES (7) Weakness Current Visit: Yes Status: Acute Assessment & Plan: (1) Complicated UTI (urinary tract infection) Current Visit: Yes Status: Acute Assessment & Plan: - UA reviewed - Levaquin started in ER continue - Iv fluids in ER - CBC, CMP reviewed - Will need OP f/u with urology at d/c for repeat UTI's - UC and BC x2 pending - Zofran for nausea - Tele 09/22 - UC negative - BC x2 negative - CBC, CMP reviewed 09/23 - CBC, CMP reviewed - does not need OP urology f/u Code(s): N39.0 - URINARY TRACT INFECTION, SITE NOT SPECIFIED (2) Ground glass opacity present on imaging of lung Current Visit: Yes Status: Acute Assessment & Plan: - as seen on abd. CT - Procal 0.370 - Flu/COVID/RSV negative - IV antibiotic - RA 92% 09/22 - Continue Levaquin - RA 91% 09/23 - RA 91% - Continue levaquin OP Code(s): R91.8 - OTHER NONSPECIFIC ABNORMAL FINDING OF LUNG FIELD (3) HTN (hypertension) Current Visit: Yes Status: Chronic Assessment & Plan: - not any any current meds - BP controlled Code(s): I10 - ESSENTIAL (PRIMARY) HYPERTENSION (4) Obesity (BMI 30-39.9) Current Visit: Yes Status: Chronic Assessment & Plan: - advised diet and exercise control Code(s): E66.9 - OBESITY, UNSPECIFIED (5) Rheumatoid arthritis Current Visit: Yes Status: Chronic Assessment & Plan: - continue home meds Code(s): M06.9 - RHEUMATOID ARTHRITIS, UNSPECIFIED (6) Abnormal liver enzymes Current Visit: Yes Status: Acute Assessment & Plan: - AST 218, ALT 169- trend 09/23 - AST 77, ALT 117- repeat labs OP - Consider viral infection Code(s): R74.8 - ABNORMAL LEVELS OF OTHER SERUM ENZYMES (7) Weakness Current Visit: Yes Status: Acute Assessment & Plan: - PT eval and treat 09/23 - pt able to walk with staff in [place] and did well- PT not needed Code(s): R53.1 - WEAKNESS - Discharge Discharge Date: 09/23/24 Disposition: Home, Self-Care Condition: Stable Prescriptions: Continue Leflunomide [Arava] 20 mg PO HS Folic Acid 1 mg PO HS Levocetirizine Dihydrochloride [Xyzal] 5 mg PO DAILY Rosuvastatin Calcium [Crestor] 10 mg PO HS Fluticasone Propionate [Flonase NASAL] 2 spray NS HS Montelukast Sodium 10 mg [Singulair 10 MG] 10 mg PO DAILY Follow up with: BRYAN HODGES [Primary Care Provider] -
== END 2024-09-23 14:00 | disposition home or self-care (01) ==
LOC: ED 14:09 → MED SURG 17:15 → ED 17:25
PROVIDERS: ADMIT Internal Medicine; ATTEND Internal Medicine
DX: N39.0 Urinary tract infection, site not specified (principal); R91.8 Other nonspecific abnormal finding of lung field; I10 Essential (primary) hypertension; E66.9 Obesity, unspecified; M06.9 Rheumatoid arthritis, unspecified; R74.8 Abnormal levels of other serum enzymes; R53.1 Weakness; Z79.899 Other long term (current) drug therapy
CPT/HCPCS: 0241U; 36415; 74176; 80053; 81001; 83605; 83735; 84132; 84145; 85025; 85027; 87040; 87086; 93041; 93268; 94760; 96374; 96375; 97161; 99284; G0378; Q3014; J1650; J1956; J2405; A9270-GY